=== PATIENT | male | born 1950 | race Caucasian/White ===

== ENCOUNTER 2017-06-25 06:34 | Day surgery (SDC) | payer BC ==
[2017-06-25] MEDS ORDERED: Ondansetron 4 MG/2 ML SDV IV ONE (06:35)
[2017-06-25] MEDS ORDERED: Lidocaine 1% with EPINEPHrine 1:100,000 20 ML MDV INJECT ONE ×2 (06:35→08:25)
[2017-06-25] MEDS ORDERED: fentaNYL 100 MCG/2 ML SDV IV ONE (06:35)
[2017-06-25] MEDS ORDERED: HYDROmorphone 1 MG/ML Syringe IV ONE (06:35)
[2017-06-25] MEDS ORDERED: Midazolam 1 MG/ML 2 ML SDV IV ONE (06:35)
[2017-06-25] MEDS ORDERED: Propofol 200 MG/20 ML SDV IV ONE (06:35)
[2017-06-25] MEDS ORDERED: Famotidine 20 MG/2 ML SDV IV ONE (06:35)
[2017-06-25] MEDS ORDERED: Midazolam 1 MG/ML 2 ML SDV ONE (07:26)
[2017-06-25] MEDS ORDERED: fentaNYL 100 MCG/2 ML SDV ONE (07:27)
[2017-06-25] MEDS ORDERED: Ondansetron 4 MG/2 ML SDV ONE (07:27)
[2017-06-25] MEDS ORDERED: Propofol 200 MG/20 ML SDV ONE (07:27)
[2017-06-25] MEDS ORDERED: Lidocaine 2% 20 ML MDV ONE (07:28)
[2017-06-25] MEDS ORDERED: Sodium Chloride 0.9% 10 ML Syringe FLUSH PRN (07:28)
[2017-06-25] MEDS ORDERED: Famotidine 20 MG/2 ML SDV ONE (07:28)
[2017-06-25] MEDS ORDERED: Lactated Ringers 1,000 ML IV SCH (07:30)
[2017-06-25] MEDS ORDERED: Lidocaine 1% with EPINEPHrine 1:100,000 20 ML MDV ONE ×3 (07:31→08:44)
--- NOTE | 2017-06-25 08:12 | PCM.PREANE ---
Preanesthetic Assessment - Procedure Proposed Procedure: Excision Lipoma right Axilla, Back of neck - Anesthesia/Transfusion/Family Hx Anesthesia History: Prior Anesthesia Without Reaction Type of Anesthesia Reaction: Unknown Family History of Anesthesia Reaction: No Transfusion History: No Prior Transfusion(s) - Physical Assessment NPO Status Date: 06/25/17 NPO Status Time: 06:10 O2 Sat by Pulse Oximetry: 96 Respiratory Rate: 18 Vital Signs: Last Vital Signs Temp 98.1 F 06/25/17 06:55 Pulse 77 06/25/17 06:55 Resp 18 06/25/17 06:55 BP 138/49 L 06/25/17 06:55 Pulse Ox 96 06/25/17 06:55 Height: 1.75 m Weight: 111.13 kg ASA Class: 3 Mental Status: Alert & Oriented x3 Airway Class: Mallampati = 3 Dentition: Reports: Normal Dentition Thyro-Mental Finger Breadths: 3 Mouth Opening Finger Breadths: 2 ROM/Head Extension: Full Lungs: Clear to Auscultation, Normal Respiratory Effort Cardiovascular: Regular Rate, Regular Rhythm - Allergies Allergies/Adverse Reactions: Allergies Allergy/AdvReac Type Severity Reaction Status Date / Time acetaminophen Allergy Cannot Verified 06/25/17 06:50 [From Tylenol-Codeine] Remember aspirin Allergy Cannot Verified 06/25/17 06:50 Remember codeine Allergy Cannot Verified 06/25/17 06:50 Remember codeine phosphate Allergy Cannot Verified 06/25/17 06:50 [From Tylenol-Codeine] Remember erythromycin base Allergy Cannot Verified 06/25/17 06:50 [Erythromycin Base] Remember glimepiride [From Amaryl] Allergy Cannot Verified 06/25/17 06:50 Remember glipizide [From Glucotrol] Allergy Cannot Verified 06/25/17 06:50 Remember Penicillins Allergy Cannot Verified 06/25/17 06:50 Remember pravastatin sodium Allergy Cannot Verified 06/25/17 06:50 [From Pravachol] Remember propoxyphene napsylate Allergy Cannot Verified 06/25/17 06:50 [From Darvocet-N] Remember sulfamethoxazole Allergy Cannot Verified 06/25/17 06:50 [From Septra] Remember trimethoprim [From Septra] Allergy Cannot Verified 06/25/17 06:50 Remember - Blood Blood Available: No Product(s) Available: None - Anesthesia Plan Pre-Op Medication Ordered: Antacids Med Last Dose Date: 06/25/17 Med Last Dose Time: 06:00 - Acknowledgements Anesthesia Type Planned: MAC Pt an Appropriate Candidate for the Planned Anesthesia: Yes Alternatives and Risks of Anesthesia Discussed w Pt/Guardian: Yes Pt/Guardian Understands and Agrees with Anesthesia Plan: Yes Additional Comments: R/B of Deep sedation vs general anesthesia is discussed with patient. Patient agreed and signed the consent. PreAnesthesia Questionnaire HEENT History: Reports: Impaired Vision Other HEENT History: wears glasses Cardiovascular History: Reports: High Cholesterol, Hypertension Respiratory History: Reports: None Gastrointestinal History: Reports: Other (See Below) Other Gastrointestinal History: ULCERATIVE colitis Genitourinary History: Reports: None, Renal Calculus Musculoskeletal History: Reports: Arthritis, Osteoarthritis Neurological History: Reports: None Psychiatric History: Reports: None Endocrine/Metabolic History: Reports: Diabetes, Type II Hematologic History: Reports: None Immunologic History: Reports: None Oncologic (Cancer) History: Reports: None Dermatologic History: Reports: None - Infectious Disease History Infectious Disease History: Reports: Chicken Pox, Measles, Mumps - Past Surgical History Head Surgeries/Procedures: Reports: None HEENT Surgical History: Reports: Cataract Surgery Cardiovascular Surgical History: Reports: None Respiratory Surgical History: Reports: None GI Surgical History: Reports: Colonoscopy, EGD Male Surgical History: Reports: Lithotripsy (ESWL) Neurological Surgical History: Reports: None Oncologic Surgical History: Reports: None Dermatological Surgical History: Reports: None - SUBSTANCE USE Smoking Status *Q: Never Smoker Second Hand Smoke Exposure: Yes Days Per Week of Alcohol Use: 0 Recreational Drug Use History: No - HOME MEDS Home Medications: Home Meds Furosemide [Furosemide] 20 mg PO ASDIRECTED 05/14/14 [History] Insulin Detemir [Levemir] 45 unit SUBCUT BEDTIME 05/14/14 [History] Fish Oil/DHA/EPA [Fish Oil 1,200 MG] 2 cap PO BID 07/28/16 [History] Insulin Lispro [HumaLOG] 26 units SQ BID 07/28/16 [History] Valsartan [Diovan] 80 mg PO DAILY 08/08/16 [History] Loratadine/Pseudoephedrine [Claritin-D 24 Hour Tablet] 0.5 tab PO DAILY PRN [History] Triamterene/Hydrochlorothiazid [Triamterene-HCTZ 37.5-25 MG] 1 each PO DAILY [History] atorvaSTATin [Lipitor] 5 mg PO BEDTIME 06/25/17 [History] - CURRENT (IN HOUSE) MEDS Current Meds: Current Medications Lactated Ringer's (Ringers, Lactated) 1,000 mls @ 50 mls/hr IV ASDIRECTED LARRY Last Admin: 06/25/17 07:30 Dose: 50 mls/hr Sodium Chloride (Saline Flush) 10 ml FLUSH ASDIRECTED PRN PRN Reason: Keep Vein Open Discontinued Medications Famotidine (Pepcid) Confirm Administered Dose 20 mg .ROUTE .STK-MED ONE Stop: 06/25/17 07:29 Fentanyl (Sublimaze) Confirm Administered Dose 200 mcg .ROUTE .STK-MED ONE Stop: 06/25/17 07:28 Lidocaine HCl (Xylocaine 2%) Confirm Administered Dose 20 ml .ROUTE .STK-MED ONE Stop: 06/25/17 07:29 Lidocaine/Epinephrine (Xylocaine 1% With Epinephrine 1:100,000) Confirm Administered Dose 20 ml .ROUTE .STK-MED ONE Stop: 06/25/17 07:32 Midazolam HCl (Versed 1 Mg/Ml) Confirm Administered Dose 2 mg .ROUTE .STK-MED ONE Stop: 06/25/17 07:27 Ondansetron HCl (Zofran) Confirm Administered Dose 4 mg .ROUTE .STK-MED ONE Stop: 06/25/17 07:28 Propofol (Diprivan 20 Ml) Confirm Administered Dose 600 mg .ROUTE .STK-MED ONE Stop: 06/25/17 07:28
[2017-06-25] MEDS ORDERED: Silver Nitrate Applicator Each ONE (08:27)
[2017-06-25] MEDS ORDERED: Silver Nitrate Applicator Each TOP ONE (08:28)
[2017-06-25] MEDS ORDERED: HYDROmorphone 1 MG/ML Syringe ONE (09:36)
--- NOTE | 2017-06-25 09:53 | PCM.POSTAN ---
POST ANESTHESIA ASSESSMENT - MENTAL STATUS Mental Status: Alert, Oriented - VITAL SIGNS Pulse Rate: 78 SaO2: 99 Resp Rate: 18 Blood Pressure: 122/78 Temperature: 98.1 F - RESPIRATORY Respiratory Status: Respiratory Rate WNL, Airway Patent, O2 Saturation Stable - CARDIOVASCULAR CV Status: Pulse Rate WNL, Blood Pressure Stable - GASTROINTESTINAL GI Status: No Symptoms - PAIN Pain Score: 1 - POST OP HYDRATION Hydration Status: Adequate & Stable - OBSERVATIONS Free Text/Narrative:: Comfortable after receiving 1 mg diludid IV. tolerated food and fluid well. BG 183 and patient is to follow his prescribed treatment as he is taking food and tolerated it well. Ready to be discharged home. Patient is pleased with anesthesia plan of care.
--- NOTE | 2017-06-25 10:02 | OR ---
DATE: 06/25/2017 ATTENDING SURGEON: Nathan Fritz MD GETTER WELDER SURGEON: Anton Cotto, PGY-III PREOPERATIVE DIAGNOSES: 1. Neck lipoma. 2. Right axillary lipoma. 3. Skin tags. POSTOPERATIVE DIAGNOSES: 1. Neck lipoma. 2. Right axillary lipoma. 3. Skin tags. SPECIMENS: 1. Right axillary lipoma. 2. Neck lipoma. ESTIMATED BLOOD LOSS: 20 mL. DRAINS: A 19-Bulgarian Sanjay drain in the right axilla. FINDINGS: Superficial neck lipoma. Lipoma of the axilla as expected. Minimal bleeding from right axilla. INDICATION FOR PROCEDURE: Tobi Francis is a 67-year-old male, who presents with lipoma of the right neck and lipoma of the right axilla. He has had these for many years. The right axilla has been giving him some issues with irritation. He has also starting having some symptoms from the neck lipoma on the right along his hairline. The risks, benefits, and alternatives were discussed with the patient by myself as well as Dr. Fritz prior to the operation, the patient wished to proceed with surgery at this time. DESCRIPTION OF PROCEDURE: The patient was brought to the operating room, placed supine on the operating room table. His arms were out. MAC anesthesia was placed. The patient was prepped and draped in standard sterile fashion. Procedural time-out was performed and all were in agreement. Local anesthetic was injected around the pre-planned incision site in the right axilla. An elliptical skin incision was made and carried down around the lipoma, removing in its entirety. There was a minimal bleeding that was controlled using electrocautery. A drain was placed. Multiple deep interrupted #1 PDS to close the space. The skin was closed with 4-0 Monocryl. Steri-Strips were placed and the 4x4s with dressings were placed. The skin tags were all removed following local anesthetic injection and electrocauterization was then used to remove the skin tags. We then tore down the sterile field and turned the patient to the left lateral decubitus position. The patient was re-prepped and draped in standard sterile fashion. Local anesthetic was injected. A linear incision was made overlying the lipoma and carried down into the subcutaneous tissue where the lipoma was encountered. This was encircled and removed in its entirety. This space was closed with 2-0 Vicryl and 4-0 Monocryl. Steri-Strips were placed over top. The patient was brought out of anesthesia without issue and transferred to PACU in stable condition. The patient will follow up in 3 days for possible drain removal at that time. Dr. Fritz was present and scrubbed for this operation. [facility] /[id number] MTDD
[2017-06-25 11:29] VITALS: BP 143/88
== END 2017-06-25 10:15 | disposition home or self-care (01) ==
LOC: DL.SDS 06:34
PROVIDERS: ATTEND Surgery
DX: D17.0 Benign lipomatous neoplasm of skin and subcutaneous tissue of head, face and neck (principal); D17.1 Benign lipomatous neoplasm of skin and subcutaneous tissue of trunk; L91.8 Other hypertrophic disorders of the skin; E11.9 Type 2 diabetes mellitus without complications; I10 Essential (primary) hypertension; E66.09 Other obesity due to excess calories; Z98.890 Other specified postprocedural states
CPT/HCPCS: 11200; 21552; 82962; J1170; J2250; J2405; J2704; J3010; J7120; S0028

== ENCOUNTER 2017-08-15 09:28 | Emergency (ER) | payer BC ==
[2017-08-15 09:45] VITALS: BP 138/75
[2017-08-15] MEDS ORDERED: Sodium Chloride 0.9% 10 ML Syringe FLUSH PRN (09:51)
--- NOTE | 2017-08-15 10:05 | EDM.PDOC ---
ED HPI GENERAL MEDICAL PROBLEM - General Chief Complaint: Respiratory Problem Stated Complaint: [id number] FLU Time Seen by Provider: 08/15/17 09:40 Source of Information: Reports: Patient, RN, RN Notes Reviewed History Limitations: Reports: No Limitations - History of Present Illness INITIAL COMMENTS - FREE TEXT/NARRATIVE: Pt presents to the ER with c/o diarrhea, generalized body aches, and not feeling well since Saturday with some nausea for which he took Maalox. He states the last time he had a bowel movement was yesterday, in which it was partial liquid/partially formed. He states he believes he had fever and chills on Saturday and Saturday, but he does not have a thermometer. He states he is diabetic and checked his sugars this morning, it was 135. He states he began having ringing in his ears yesterday, with his left being worse than the right. Pt denies vomiting, chest pain or sob. He admits to intermittant cough, but denies sore throat. Onset: Gradual Onset Date: 08/11/17 - Related Data Allergies Allergy/AdvReac Type Severity Reaction Status Date / Time acetaminophen Allergy Cannot Verified 06/28/17 10:05 [From Tylenol-Codeine] Remember aspirin Allergy Cannot Verified 06/28/17 10:05 Remember codeine Allergy Cannot Verified 06/28/17 10:05 Remember codeine phosphate Allergy Cannot Verified 06/28/17 10:05 [From Tylenol-Codeine] Remember erythromycin base Allergy Cannot Verified 06/28/17 10:05 [Erythromycin Base] Remember glimepiride [From Amaryl] Allergy Cannot Verified 06/28/17 10:05 Remember glipizide [From Glucotrol] Allergy Cannot Verified 06/28/17 10:05 Remember Penicillins Allergy Cannot Verified 06/28/17 10:05 Remember pravastatin sodium Allergy Cannot Verified 06/28/17 10:05 [From Pravachol] Remember propoxyphene napsylate Allergy Cannot Verified 06/28/17 10:05 [From Darvocet-N] Remember sulfamethoxazole Allergy Cannot Verified 06/28/17 10:05 [From Septra] Remember trimethoprim [From Septra] Allergy Cannot Verified 06/28/17 10:05 Remember Home Meds: Home Meds Furosemide 20 mg PO ASDIRECTED 05/14/14 [History] Insulin Detemir [Levemir] 75 unit SUBCUT BEDTIME 05/14/14 [History] Fish Oil/DHA/EPA [Fish Oil 1,200 MG] 2 cap PO BID 07/28/16 [History] Insulin Lispro [HumaLOG] 26 units SQ BID 07/28/16 [History] Valsartan [Diovan] 80 mg PO DAILY 08/08/16 [History] Loratadine/Pseudoephedrine [Claritin-D 24 Hour Tablet] 0.5 tab PO DAILY PRN [History] Triamterene/Hydrochlorothiazid [Triamterene-HCTZ 37.5-25 MG] 1 each PO DAILY [History] atorvaSTATin [Lipitor] 5 mg PO BEDTIME 06/25/17 [History] Past Medical History HEENT History: Reports: Impaired Vision Other HEENT History: wears glasses Cardiovascular History: Reports: High Cholesterol, Hypertension Respiratory History: Reports: None Gastrointestinal History: Reports: Other (See Below) Other Gastrointestinal History: ULCERATIVE colitis Genitourinary History: Reports: None, Renal Calculus Musculoskeletal History: Reports: Arthritis, Osteoarthritis Neurological History: Reports: None, Neuropathy, Diabetic Psychiatric History: Reports: None Endocrine/Metabolic History: Reports: Diabetes, Type II Hematologic History: Reports: None Immunologic History: Reports: None Oncologic (Cancer) History: Reports: None Dermatologic History: Reports: None - Infectious Disease History Infectious Disease History: Reports: Chicken Pox, Measles, Mumps - Past Surgical History Head Surgeries/Procedures: Reports: None HEENT Surgical History: Reports: Cataract Surgery Cardiovascular Surgical History: Reports: None Respiratory Surgical History: Reports: None GI Surgical History: Reports: Colonoscopy, EGD Male Surgical History: Reports: Lithotripsy (ESWL) Neurological Surgical History: Reports: None Oncologic Surgical History: Reports: None Dermatological Surgical History: Reports: None Social & Family History - Family History Family Medical History: Noncontributory - Tobacco Use Smoking Status *Q: Never Smoker Second Hand Smoke Exposure: Yes - Caffeine Use Caffeine Use: Reports: Soda - Alcohol Use Days Per Week of Alcohol Use: 0 - Recreational Drug Use Recreational Drug Use: No - Living Situation & Occupation Living situation: Reports: Single Occupation: Retired ED ROS GENERAL - Review of Systems Review Of Systems: ROS reveals no pertinent complaints other than HPI. ED EXAM, GENERAL - Physical Exam Exam: See Below Exam Limited By: No Limitations General Appearance: Alert, WD/WN, No Apparent Distress Eye Exam: Left Eye: Abnormal Pupil (irregular shape) Ears: Normal External Exam, Normal Canal, Hearing Grossly Normal Ear Exam: Bilateral Ear: Auricle Normal, Canal Normal, TM Dull, Other (effusions ) Nose: Normal Inspection Throat/Mouth: Normal Inspection, Normal Lips, Normal Teeth, Normal Gums, Normal Oropharynx, Normal Voice, No Airway Compromise Head: Atraumatic, Normocephalic Neck: Normal Inspection, Supple, Non-Tender, Full Range of Motion Respiratory/Chest: No Respiratory Distress, Lungs Clear, Normal Breath Sounds, No Accessory Muscle Use, Chest Non-Tender Cardiovascular: Normal Peripheral Pulses, Regular Rate, Rhythm, No Edema, No Gallop, No JVD, No Murmur, No Rub Peripheral Pulses: 2+: Radial (L), Radial (R) GI/Abdominal: Normal Bowel Sounds, Soft, Non-Tender (Male) Exam: Deferred Rectal (Males) Exam: Deferred Back Exam: Normal Inspection, Full Range of Motion Extremities: Normal Inspection, Normal Range of Motion, Non-Tender, No Pedal Edema, Normal Capillary Refill Neurological: Alert, Oriented, Normal Cognition, Normal Gait, No Motor/Sensory Deficits Psychiatric: Normal Affect, Normal Mood Skin Exam: Warm, Dry, Intact, Normal Color, No Rash Lymphatic: No Adenopathy Course - Vital Signs Last Recorded V/S: Last Vital Signs Temp 97 F 08/15/17 09:44 Pulse 84 08/15/17 09:44 Resp 16 08/15/17 09:44 BP 138/75 08/15/17 09:44 Pulse Ox 96 08/15/17 09:44 - Orders/Labs/Meds Orders: Active Orders 24 hr Category Date Time Status Peripheral IV Care [RC] . DIRECTED Care 08/15/17 09:52 Active CULTURE STREP A CONFIRMATION [] Stat Lab 08/15/17 09:55 Results STREP SCRN A RAPID W CULT CONF [] Stat Lab 08/15/17 09:55 Results Sodium Chloride 0.9% [Saline Flush] Med 08/15/17 09:51 Active 10 ml FLUSH ASDIRECTED PRN Peripheral IV Insertion Adult [OM.PC] Stat Oth 08/15/17 09:51 Ordered Medication Orders Sodium Chloride (Saline Flush) 10 ml FLUSH ASDIRECTED PRN PRN Reason: Keep Vein Open Last Admin: 08/15/17 10:09 Dose: 10 ml Labs: Laboratory Tests 08/15/17 08/15/17 Range/Units 10:02 10:02 WBC 6.6 (5.0-10.0) 10^3/uL RBC 4.78 (4.6-6.2) 10^6/uL Hgb 14.4 (14.0-18.0) g/dL Hct 42.4 (40.0-54.0) % MCV 88.7 (80-100) fL MCH 30.1 (27.0-34.0) pg MCHC 34.0 (33.0-35.0) g/dL Plt Count 176 (150-450) 10^3/uL Neut % (Auto) 52.5 (42.2-75.2) % Lymph % (Auto) 29.8 (20.5-50.1) % [place] % (Auto) 14.0 H (2-8) % Eos % (Auto) 3.4 H (1.0-3.0) % Baso % (Auto) 0.3 (0.0-1.0) % Sodium 137 (135-145) mmol/L Potassium 3.5 L (3.6-5.0) mmol/L Chloride 98 L (101-111) mmol/L Carbon Dioxide 27.0 (21.0-31.0) mmol/L Anion Gap 15.5 BUN 21 H (7-18) mg/dL Creatinine 1.1 (0.6-1.3) mg/dL Est Cr Clr Drug Dosing 62.18 mL/min Estimated GFR (MDRD) > 60 BUN/Creatinine Ratio 19.09 Glucose 128 H (74-105) mg/dL Calcium 9.3 (8.4-10.2) mg/dl Total Bilirubin 0.8 (0.2-1.0) mg/dL AST 26 (10-42) IU/L ALT 34 (10-60) IU/L Alkaline Phosphatase 53 (42-121) IU/L Total Protein 7.3 (6.7-8.2) g/dl Albumin 3.9 (3.2-5.5) g/dl Globulin 3.4 Albumin/Globulin Ratio 1.15 Group A Strep Screen: NEGATIVE Meds: Medications Generic Name Dose Route Start Last Admin Trade Name [place] PRN Reason Stop Dose Admin Sodium Chloride 10 ml 08/15/17 09:51 08/15/17 10:09 Saline Flush FLUSH 10 ml ASDIRECTED PRN Administration Keep Vein Open Departure - Departure Time of Disposition: 10:41 Disposition: Home, Self-Care 01 Condition: Good Clinical Impression: Acute middle ear effusion Qualifiers: Laterality: bilateral Qualified Code(s): H65.193 - Other acute nonsuppurative otitis media, bilateral - Discharge Information Instructions: Otitis Media With Effusion Forms: ED Department Discharge Additional Instructions: Use Flonase (fluticasone) 1 spray to each nostril once daily. Use the left hand to spray the right nare, and the right hand to spray the left nare. Use 1 full tablet of the loratidine/pseudoephedrine (Claritin D) once daily for 1 week. Drink plenty of water. - My Orders Last 24 Hours: My Active Orders 08/15/17 09:51 Sodium Chloride 0.9% [Saline Flush] 10 ml FLUSH ASDIRECTED PRN Peripheral IV Insertion Adult [OM.PC] Stat 08/15/17 09:52 Peripheral IV Care [RC] . DIRECTED 08/15/17 09:55 CULTURE STREP A CONFIRMATION [RM] Stat STREP SCRN A RAPID W CULT CONF [] Stat - Assessment/Plan Last 24 Hours: My Active Orders 08/15/17 09:51 Sodium Chloride 0.9% [Saline Flush] 10 ml FLUSH ASDIRECTED PRN Peripheral IV Insertion Adult [OM.PC] Stat 08/15/17 09:52 Peripheral IV Care [RC] . DIRECTED 08/15/17 09:55 CULTURE STREP A CONFIRMATION [RM] Stat STREP SCRN A RAPID W CULT CONF [] Stat
[2017-08-15 10:28] LABS: CHLORIDE,CL 98 mmol/L (101-111); SODIUM,NA 137 mmol/L (135-145)
== END 2017-08-15 10:52 | disposition home or self-care (01) ==
LOC: DL.ED 09:28
DX: H65.193 Other acute nonsuppurative otitis media, bilateral (principal); E78.00 Pure hypercholesterolemia, unspecified; I10 Essential (primary) hypertension; E11.40 Type 2 diabetes mellitus with diabetic neuropathy, unspecified; Z88.8 Allergy status to other drugs, medicaments and biological substances; Z88.5 Allergy status to narcotic agent; Z88.1 Allergy status to other antibiotic agents; Z88.0 Allergy status to penicillin; Z79.4 Long term (current) use of insulin
CPT/HCPCS: 36415; 80053; 85025; 87081; 87430; 99282; J7050

== ENCOUNTER 2017-08-19 08:29 | Emergency (ER) | payer BC ==
--- NOTE | 2017-08-19 08:54 | EDM.PDOC ---
ED HPI GENERAL MEDICAL PROBLEM - General Chief Complaint: Lower Extremity Injury/Pain Stated Complaint: [id number] FEET PAIN LEFT FOOT WORSE Time Seen by Provider: 08/19/17 08:40 Source of Information: Reports: Patient History Limitations: Reports: No Limitations - History of Present Illness INITIAL COMMENTS - FREE TEXT/NARRATIVE: This 67 yo male patient reports to the ED with left foot pain, but reports both feet have pain. The patient reports his pain started about 1 month ago, but got worse over the past couple of days. The patient reports that he did see Dr. Doyle (Podiatry) last week, but nothing was done for his symptoms. The patient requested that he be transferred to another hospital "to have something done." The patient was advised that we could not transfer him unless there was a medical reason for a transfer. The patient reports he does have some hydrocodone for his arthritis, but has not taken that medication. The patient also reports a history of diabetes and peripheral neuropathy. Onset: Gradual (nerve pain started over 1 month ago, but got worse over the past 48 hours.) Duration: Constant, Getting Worse Location: Reports: Lower Extremity, Left Quality: Reports: Ache, Sharp Severity: Severe Improves with: Reports: None Worsens with: Reports: None Associated Symptoms: Reports: No Other Symptoms Left Feet Pain Score (Numeric/FACES): 5 - Related Data Allergies Allergy/AdvReac Type Severity Reaction Status Date / Time acetaminophen Allergy Cannot Verified 08/19/17 09:20 [From Tylenol-Codeine] Remember aspirin Allergy Cannot Verified 08/19/17 09:20 Remember codeine Allergy Cannot Verified 08/19/17 09:20 Remember codeine phosphate Allergy Cannot Verified 08/19/17 09:20 [From Tylenol-Codeine] Remember erythromycin base Allergy Cannot Verified 08/19/17 09:20 [Erythromycin Base] Remember glimepiride [From Amaryl] Allergy Cannot Verified 08/19/17 09:20 Remember glipizide [From Glucotrol] Allergy Cannot Verified 08/19/17 09:20 Remember Penicillins Allergy Cannot Verified 08/19/17 09:20 Remember pravastatin sodium Allergy Cannot Verified 08/19/17 09:20 [From Pravachol] Remember propoxyphene napsylate Allergy Cannot Verified 08/19/17 09:20 [From Darvocet-N] Remember sulfamethoxazole Allergy Cannot Verified 08/19/17 09:20 [From ] Remember trimethoprim [From ] Allergy Cannot Verified 08/19/17 09:20 Remember Home Meds: Home Meds Furosemide 20 mg PO ASDIRECTED 05/14/14 [History] Insulin Detemir [Levemir] 75 unit SUBCUT BEDTIME 05/14/14 [History] Fish Oil/DHA/EPA [Fish Oil 1,200 MG] 2 cap PO BID 07/28/16 [History] Insulin Lispro [HumaLOG] 45 units SQ BID 07/28/16 [History] Valsartan [Diovan] 80 mg PO DAILY 08/08/16 [History] Loratadine/Pseudoephedrine [Claritin-D 24 Hour Tablet] 0.5 tab PO DAILY PRN [History] Triamterene/Hydrochlorothiazid [Triamterene-HCTZ 37.5-25 MG] 1 each PO DAILY [History] atorvaSTATin [Lipitor] 5 mg PO BEDTIME 06/25/17 [History] Past Medical History HEENT History: Reports: Impaired Vision Other HEENT History: wears glasses Cardiovascular History: Reports: High Cholesterol, Hypertension Respiratory History: Reports: None Gastrointestinal History: Reports: Other (See Below) Other Gastrointestinal History: ULCERATIVE colitis Genitourinary History: Reports: Renal Calculus Musculoskeletal History: Reports: Arthritis, Osteoarthritis Neurological History: Reports: Neuropathy, Diabetic Psychiatric History: Reports: None Endocrine/Metabolic History: Reports: Diabetes, Type II Hematologic History: Reports: None Immunologic History: Reports: None Oncologic (Cancer) History: Reports: None Dermatologic History: Reports: None - Infectious Disease History Infectious Disease History: Reports: Chicken Pox, Measles, Mumps - Past Surgical History Head Surgeries/Procedures: Reports: None HEENT Surgical History: Reports: Cataract Surgery Cardiovascular Surgical History: Reports: None Respiratory Surgical History: Reports: None GI Surgical History: Reports: Colonoscopy, EGD Male Surgical History: Reports: Lithotripsy (ESWL) Neurological Surgical History: Reports: None Oncologic Surgical History: Reports: None Dermatological Surgical History: Reports: None Social & Family History - Family History Family Medical History: Noncontributory - Tobacco Use Smoking Status *Q: Never Smoker Second Hand Smoke Exposure: Yes - Caffeine Use Caffeine Use: Reports: Coffee - Alcohol Use Days Per Week of Alcohol Use: 0 - Recreational Drug Use Recreational Drug Use: No - Living Situation & Occupation Living situation: Reports: Single Occupation: Retired Review of Systems - Review of Systems Review Of Systems: ROS reveals no pertinent complaints other than HPI. ED EXAM, GENERAL - Physical Exam Exam: See Below Exam Limited By: No Limitations General Appearance: Alert, WD/WN, Moderate Distress Eye Exam: Bilateral Eye: EOMI, Normal Inspection, PERRL Ears: Normal External Exam, Normal Canal, Hearing Grossly Normal, Normal TMs Nose: Normal Inspection, Normal Mucosa, No Blood Throat/Mouth: Normal Inspection, Normal Lips, Normal Teeth, Normal Gums, Normal Oropharynx, Normal Voice, No Airway Compromise Head: Atraumatic, Normocephalic Neck: Normal Inspection, Supple, Non-Tender, Full Range of Motion Respiratory/Chest: No Respiratory Distress, Lungs Clear, Normal Breath Sounds, No Accessory Muscle Use, Chest Non-Tender Cardiovascular: Normal Peripheral Pulses, Regular Rate, Rhythm, No Edema, No Gallop, No JVD, No Murmur, No Rub GI/Abdominal: Normal Bowel Sounds, Soft, Non-Tender, No Organomegaly, No Distention, No Abnormal Bruit, No Mass (Male) Exam: Deferred Rectal (Males) Exam: Deferred Back Exam: Normal Inspection, Full Range of Motion, NT Extremities: Other (left foot pain) Neurological: Alert, Oriented, CN II-XII Intact, Normal Cognition, Normal Gait, Normal Reflexes Psychiatric: Normal Affect, Normal Mood Skin Exam: Warm, Dry, Intact, Normal Color, No Rash Lymphatic: No Adenopathy Course - Vital Signs Last Recorded V/S: Last Vital Signs Temp 36.6 C 08/19/17 08:49 Pulse 84 08/19/17 08:49 Resp 18 08/19/17 08:49 BP 120/66 08/19/17 08:49 Pulse Ox 95 08/19/17 08:49 Departure - Departure Time of Disposition: 09:29 Disposition: Home, Self-Care 01 Condition: Fair Clinical Impression: Peripheral neuropathic pain - Discharge Information Instructions: Peripheral Neuropathy, Diabetic Neuropathy Forms: ED Department Discharge Care Plan Goals: The patient was advised of the examination and x-ray results during the visit. The patient was encouraged to follow-up with his primary care facility or distiller for consideration for starting a medication called Gabapentin ( designed for peripheral neuropathy). If the patient has any additional symptoms or concerns, the patient should visit his primary care facility or return to the emergency department.
[2017-08-19 09:31] VITALS: BP 120/63
== END 2017-08-19 09:40 | disposition home or self-care (01) ==
LOC: DL.ED 08:29
DX: M79.2 Neuralgia and neuritis, unspecified (principal); E78.00 Pure hypercholesterolemia, unspecified; I10 Essential (primary) hypertension; E11.40 Type 2 diabetes mellitus with diabetic neuropathy, unspecified; Z79.899 Other long term (current) drug therapy; Z79.4 Long term (current) use of insulin; Z88.2 Allergy status to sulfonamides; Z88.5 Allergy status to narcotic agent; Z88.8 Allergy status to other drugs, medicaments and biological substances
CPT/HCPCS: 73630-LT; 99284

== ENCOUNTER 2017-10-19 17:31 | Emergency (ER) | payer BC ==
[2017-10-19] MEDS ORDERED: Cephalexin 500 MG Cap PO ONE (18:13)
--- NOTE | 2017-10-19 18:14 | EDM.PDOC ---
ED HPI GENERAL MEDICAL PROBLEM - General Chief Complaint: Respiratory Problem Stated Complaint: COUGH AND CONGESTION [id number] Time Seen by Provider: 10/19/17 17:50 Source of Information: Reports: Patient, RN, RN Notes Reviewed - History of Present Illness INITIAL COMMENTS - FREE TEXT/NARRATIVE: Pt presents to the ER with c/o sneezing, productive cough, sore throat, congestion, fever, and chills for the past 2 weeks. He states he was seen in the ER at [facility] in [place] about 2 weeks ago with gastritis, N/V/D. He states he was there for several hours getting fluids. He states the upper respiratory symptoms started a day or two after the gastritis. Onset: Gradual Location: Reports: Face Generalized Pain Score (Numeric/FACES): 2 - Related Data Allergies Allergy/AdvReac Type Severity Reaction Status Date / Time acetaminophen Allergy Cannot Verified 10/19/17 17:40 [From Tylenol-Codeine] Remember aspirin Allergy Cannot Verified 10/19/17 17:40 Remember codeine Allergy Cannot Verified 10/19/17 17:40 Remember codeine phosphate Allergy Cannot Verified 10/19/17 17:40 [From Tylenol-Codeine] Remember erythromycin base Allergy Cannot Verified 10/19/17 17:40 [Erythromycin Base] Remember glimepiride [From Amaryl] Allergy Cannot Verified 10/19/17 17:40 Remember glipizide [From Glucotrol] Allergy Cannot Verified 10/19/17 17:40 Remember Penicillins Allergy Cannot Verified 10/19/17 17:40 Remember pravastatin sodium Allergy Cannot Verified 10/19/17 17:40 [From Pravachol] Remember propoxyphene napsylate Allergy Cannot Verified 10/19/17 17:40 [From Darvocet-N] Remember sulfamethoxazole Allergy Cannot Verified 10/19/17 17:40 [From Septra] Remember trimethoprim [From Septra] Allergy Cannot Verified 10/19/17 17:40 Remember Home Meds: Home Meds Furosemide 20 mg PO ASDIRECTED 05/14/14 [History] Insulin Detemir [Levemir] 74 unit SUBCUT BEDTIME 05/14/14 [History] Fish Oil/DHA/EPA [Fish Oil 1,200 MG] 2 cap PO BID 07/28/16 [History] Insulin Lispro [HumaLOG] 45 units SQ BID 07/28/16 [History] Valsartan [Diovan] 80 mg PO DAILY 08/08/16 [History] Loratadine/Pseudoephedrine [Claritin-D 24 Hour Tablet] 0.5 tab PO DAILY PRN [History] Triamterene/Hydrochlorothiazid [Triamterene-HCTZ 37.5-25 MG] 1 each PO DAILY [History] atorvaSTATin [Lipitor] 5 mg PO BEDTIME 06/25/17 [History] Acetaminophen [Tylenol Extra Strength] 250 mg PO Q6H 10/19/17 [History] Famotidine [Pepcid] 10 mg PO BID 10/19/17 [History] Hydrocodone/Acetaminophen [Hydrocodon-Acetaminoph 2.5-325] 1 tab PO 1700 PRN [History] Past Medical History HEENT History: Reports: Impaired Vision Other HEENT History: wears glasses Cardiovascular History: Reports: High Cholesterol, Hypertension Respiratory History: Reports: None Gastrointestinal History: Reports: Other (See Below) Other Gastrointestinal History: ULCERATIVE colitis Genitourinary History: Reports: Renal Calculus Musculoskeletal History: Reports: Arthritis, Osteoarthritis Neurological History: Reports: Neuropathy, Diabetic Psychiatric History: Reports: None Endocrine/Metabolic History: Reports: Diabetes, Type II Hematologic History: Reports: None Immunologic History: Reports: None Oncologic (Cancer) History: Reports: None Dermatologic History: Reports: None - Infectious Disease History Infectious Disease History: Reports: Chicken Pox, Measles, Mumps - Past Surgical History Head Surgeries/Procedures: Reports: None HEENT Surgical History: Reports: Cataract Surgery Cardiovascular Surgical History: Reports: None Respiratory Surgical History: Reports: None GI Surgical History: Reports: Colonoscopy, EGD Male Surgical History: Reports: Lithotripsy (ESWL) Neurological Surgical History: Reports: None Oncologic Surgical History: Reports: None Dermatological Surgical History: Reports: None Social & Family History - Family History Family Medical History: Noncontributory - Tobacco Use Smoking Status *Q: Never Smoker Second Hand Smoke Exposure: Yes - Caffeine Use Caffeine Use: Reports: None - Alcohol Use Days Per Week of Alcohol Use: 0 - Recreational Drug Use Recreational Drug Use: No - Living Situation & Occupation Living situation: Reports: Single Occupation: Retired ED ROS GENERAL - Review of Systems Review Of Systems: ROS reveals no pertinent complaints other than HPI. ED EXAM, GENERAL - Physical Exam Exam: See Below Exam Limited By: No Limitations General Appearance: Alert, WD/WN, No Apparent Distress Eye Exam: Bilateral Eye: EOMI, Normal Inspection Ears: Normal External Exam, Hearing Grossly Normal Ear Exam: Bilateral Ear: TM Dull Nose: Normal Inspection Throat/Mouth: Normal Inspection, Normal Voice, No Airway Compromise, Other ( oropharnyx erythematous) Head: Atraumatic, Normocephalic Neck: Normal Inspection, Supple, Non-Tender, Full Range of Motion Respiratory/Chest: No Respiratory Distress, Lungs Clear, Normal Breath Sounds, No Accessory Muscle Use, Chest Non-Tender Cardiovascular: Normal Peripheral Pulses, Regular Rate, Rhythm, No Edema, No Gallop, No JVD, No Murmur, No Rub Peripheral Pulses: 2+: Radial (L), Radial (R) GI/Abdominal: Normal Bowel Sounds, Soft, Non-Tender, No Organomegaly, No Distention, No Abnormal Bruit, No Mass (Male) Exam: Deferred Rectal (Males) Exam: Deferred Back Exam: Normal Inspection, Full Range of Motion, NT Extremities: Normal Inspection, Normal Range of Motion, Non-Tender, Normal Capillary Refill, No Pedal Edema Neurological: Alert, Oriented, CN II-XII Intact, Normal Cognition, Normal Gait, Normal Reflexes, No Motor/Sensory Deficits Psychiatric: Normal Affect, Normal Mood Skin Exam: Warm, Dry, Intact, Normal Color, No Rash Lymphatic: Adenopathy (Bilateral anterior cervical) Course - Vital Signs Last Recorded V/S: Last Vital Signs Temp 96.7 F 10/19/17 17:36 Pulse 97 10/19/17 17:36 Resp 16 10/19/17 17:36 BP 175/70 H 10/19/17 17:36 Pulse Ox 95 10/19/17 17:36 - Orders/Labs/Meds Meds: Medications Discontinued Medications Generic Name Dose Route Start Last Admin Trade Name Freq PRN Reason Stop Dose Admin Cephalexin 500 mg 10/19/17 18:13 Keflex PO 10/19/17 18:14 ONETIME ONE Departure - Departure Time of Disposition: 18:10 Disposition: Home, Self-Care 01 Clinical Impression: Upper respiratory infection Qualifiers: URI type: unspecified URI Qualified Code(s): J06.9 - Acute upper respiratory infection, unspecified - Discharge Information Instructions: Upper Respiratory Infection, Adult, [id number] Forms: ED Department Discharge Additional Instructions: RX: Keflex Use the Flonase that you have at home. 1 spray to each nostril daily for 7-10 days. Drink plenty of water. Follow up with your primary care facility if no improvement.
[2017-10-19 18:20] VITALS: BP 121/74
== END 2017-10-19 18:22 | disposition home or self-care (01) ==
LOC: DL.ED 17:31
DX: J06.9 Acute upper respiratory infection, unspecified (principal); I10 Essential (primary) hypertension; E78.00 Pure hypercholesterolemia, unspecified; E11.40 Type 2 diabetes mellitus with diabetic neuropathy, unspecified; Z88.5 Allergy status to narcotic agent; Z88.1 Allergy status to other antibiotic agents; Z88.8 Allergy status to other drugs, medicaments and biological substances; Z88.0 Allergy status to penicillin; Z88.2 Allergy status to sulfonamides; Z88.6 Allergy status to analgesic agent; Z79.899 Other long term (current) drug therapy; Z79.4 Long term (current) use of insulin
CPT/HCPCS: 99283; A9270

== ENCOUNTER 2017-11-12 21:49 | Emergency (ER) | payer BC ==
[2017-11-12 21:59] VITALS: BP 147/62
--- NOTE | 2017-11-12 22:41 | EDM.PDOC ---
ED HPI GENERAL MEDICAL PROBLEM - General Chief Complaint: ENT Problem Time Seen by Provider: 11/12/17 22:39 Source of Information: Reports: Patient History Limitations: Reports: No Limitations - History of Present Illness INITIAL COMMENTS - FREE TEXT/NARRATIVE: c/o cough, congestion, achy feeling, scratchy throat with fever and chills. Similar symptoms 2 weeks ago, resolved with abx, Was at [email or web address] game and sx resumed. Generalized Pain Score (Numeric/FACES): 4 - Related Data Allergies Allergy/AdvReac Type Severity Reaction Status Date / Time acetaminophen Allergy Cannot Verified 11/12/17 21:59 [From Tylenol-Codeine] Remember aspirin Allergy Cannot Verified 11/12/17 21:59 Remember codeine Allergy Cannot Verified 11/12/17 21:59 Remember codeine phosphate Allergy Cannot Verified 11/12/17 21:59 [From Tylenol-Codeine] Remember erythromycin base Allergy Cannot Verified 11/12/17 21:59 [Erythromycin Base] Remember glimepiride [From Amaryl] Allergy Cannot Verified 11/12/17 21:59 Remember glipizide [From Glucotrol] Allergy Cannot Verified 11/12/17 21:59 Remember Penicillins Allergy Cannot Verified 11/12/17 21:59 Remember pravastatin sodium Allergy Cannot Verified 11/12/17 21:59 [From Pravachol] Remember propoxyphene napsylate Allergy Cannot Verified 11/12/17 21:59 [From Darvocet-N] Remember sulfamethoxazole Allergy Cannot Verified 11/12/17 21:59 [From Septra] Remember trimethoprim [From Septra] Allergy Cannot Verified 11/12/17 21:59 Remember Home Meds: Home Meds Furosemide 20 mg PO ASDIRECTED 05/14/14 [History] Insulin Detemir [Levemir] 74 unit SUBCUT BEDTIME 05/14/14 [History] Fish Oil/DHA/EPA [Fish Oil 1,200 MG] 2 cap PO BID 07/28/16 [History] Insulin Lispro [HumaLOG] 45 units SQ BID 07/28/16 [History] Valsartan [Diovan] 80 mg PO DAILY 08/08/16 [History] Loratadine/Pseudoephedrine [Claritin-D 24 Hour Tablet] 0.5 tab PO DAILY PRN [History] Triamterene/Hydrochlorothiazid [Triamterene-HCTZ 37.5-25 MG] 1 each PO DAILY [History] atorvaSTATin [Lipitor] 5 mg PO BEDTIME 06/25/17 [History] Acetaminophen [Tylenol Extra Strength] 250 mg PO Q6H 10/19/17 [History] Famotidine [Pepcid] 10 mg PO BID 10/19/17 [History] Hydrocodone/Acetaminophen [Hydrocodon-Acetaminoph 2.5-325] 1 tab PO 1700 PRN [History] Acetaminophen with Codeine [Tylenol with Codeine #3 Tablet] 1 each PO BID PRN [History] Past Medical History HEENT History: Reports: Impaired Vision Other HEENT History: wears glasses Cardiovascular History: Reports: High Cholesterol, Hypertension Respiratory History: Reports: None Gastrointestinal History: Reports: Other (See Below) Other Gastrointestinal History: ULCERATIVE colitis Genitourinary History: Reports: Renal Calculus Musculoskeletal History: Reports: Arthritis, Osteoarthritis Neurological History: Reports: Neuropathy, Diabetic Psychiatric History: Reports: None Endocrine/Metabolic History: Reports: Diabetes, Type II Hematologic History: Reports: None Immunologic History: Reports: None Oncologic (Cancer) History: Reports: None Dermatologic History: Reports: None - Infectious Disease History Infectious Disease History: Reports: Chicken Pox, Measles, Mumps - Past Surgical History Head Surgeries/Procedures: Reports: None HEENT Surgical History: Reports: Cataract Surgery Cardiovascular Surgical History: Reports: None Respiratory Surgical History: Reports: None GI Surgical History: Reports: Colonoscopy, EGD Male Surgical History: Reports: Lithotripsy (ESWL) Neurological Surgical History: Reports: None Oncologic Surgical History: Reports: None Dermatological Surgical History: Reports: None Social & Family History - Family History Family Medical History: Noncontributory - Tobacco Use Smoking Status *Q: Never Smoker Second Hand Smoke Exposure: No - Caffeine Use Caffeine Use: Reports: None - Alcohol Use Days Per Week of Alcohol Use: 0 - Recreational Drug Use Recreational Drug Use: No - Living Situation & Occupation Living situation: Reports: Single Occupation: Retired ED ROS ENT - Review of Systems Review Of Systems: See Below Constitutional: Reports: Fever, Chills HEENT: Reports: Sinus Problem, Throat Pain Respiratory: Reports: Cough Cardiovascular: Denies: Chest Pain Endocrine: Reports: No Symptoms GI/Abdominal: Reports: No Symptoms Musculoskeletal: Reports: No Symptoms Skin: Reports: No Symptoms Neurological: Reports: No Symptoms ED EXAM, ENT - Physical Exam Exam: See Below Exam Limited By: No Limitations General Appearance: Alert, No Apparent Distress Eye Exam: Bilateral Eye: EOMI, PERRL Ears: Normal External Exam, Normal TMs. No: TM Erythema Nose: Normal Inspection Mouth/Throat: Pharyngeal Erythema Head: Atraumatic, Normocephalic Neck: Normal Inspection, Full Range of Motion Respiratory/Chest: No Respiratory Distress, Lungs Clear, Normal Breath Sounds Cardiovascular: Normal Peripheral Pulses, Regular Rate, Rhythm GI/Abdominal: Normal Bowel Sounds, Soft, Non-Tender Extremities: Normal Inspection Neurological: Alert, Oriented Psychiatric: Normal Affect Skin: Warm, Dry, Intact, Normal Color Course - Vital Signs Last Recorded V/S: Last Vital Signs Temp 97.9 F 11/12/17 21:55 Pulse 86 11/12/17 21:55 Resp 18 11/12/17 21:55 BP 147/62 H 11/12/17 21:55 Pulse Ox 97 11/12/17 21:55 Departure - Departure Time of Disposition: 22:41 Disposition: Home, Self-Care 01 Condition: Good Clinical Impression: Upper respiratory infection Qualifiers: URI type: unspecified URI Qualified Code(s): J06.9 - Acute upper respiratory infection, unspecified - Discharge Information Instructions: Upper Respiratory Infection, Adult Referrals: PCP,Unobtain [Primary Care Provider] - Forms: ED Department Discharge Additional Instructions: increase fluids ibuprofen for fever keflex 500mg 3 times daily for 10 days follow up in clinic if not improving
== END 2017-11-12 22:49 | disposition home or self-care (01) ==
LOC: DL.ED 21:49
DX: J06.9 Acute upper respiratory infection, unspecified (principal); I10 Essential (primary) hypertension; E78.00 Pure hypercholesterolemia, unspecified; E11.40 Type 2 diabetes mellitus with diabetic neuropathy, unspecified; Z79.4 Long term (current) use of insulin; Z79.899 Other long term (current) drug therapy; Z88.1 Allergy status to other antibiotic agents; Z88.2 Allergy status to sulfonamides; Z88.8 Allergy status to other drugs, medicaments and biological substances; Z88.5 Allergy status to narcotic agent; Z88.6 Allergy status to analgesic agent; Z88.0 Allergy status to penicillin
CPT/HCPCS: 99282

== ENCOUNTER 2018-06-24 22:39 | Emergency (ER) | payer BC ==
[2018-06-24 22:55] VITALS: BP 141/76
--- NOTE | 2018-06-25 01:13 | EDM.PDOC ---
ED HPI GENERAL MEDICAL PROBLEM - General Chief Complaint: ENT Problem Stated Complaint: SORE THROAT [id number] Time Seen by Provider: 06/25/18 01:08 Source of Information: Reports: Patient History Limitations: Reports: No Limitations - History of Present Illness INITIAL COMMENTS - FREE TEXT/NARRATIVE: patient community department today with complaints of an itchy scratchy and sore throat. This been going on for the past couple of days. He has no difficulty swallowing or congestion. No sinus congestion or ear pain. No shortness of breath or difficulty breathing. No fever no chills. Right Throat Pain Score (Numeric/FACES): 6 - Related Data Allergies Allergy/AdvReac Type Severity Reaction Status Date / Time acetaminophen Allergy Cannot Verified 11/12/17 21:59 [From Tylenol-Codeine] Remember aspirin Allergy Cannot Verified 11/12/17 21:59 Remember codeine Allergy Cannot Verified 11/12/17 21:59 Remember codeine phosphate Allergy Cannot Verified 11/12/17 21:59 [From Tylenol-Codeine] Remember erythromycin base Allergy Cannot Verified 11/12/17 21:59 [Erythromycin Base] Remember glimepiride [From Amaryl] Allergy Cannot Verified 11/12/17 21:59 Remember glipizide [From Glucotrol] Allergy Cannot Verified 11/12/17 21:59 Remember Penicillins Allergy Cannot Verified 11/12/17 21:59 Remember pravastatin sodium Allergy Cannot Verified 11/12/17 21:59 [From Pravachol] Remember propoxyphene napsylate Allergy Cannot Verified 11/12/17 21:59 [From Darvocet-N] Remember sulfamethoxazole Allergy Cannot Verified 11/12/17 21:59 [From Septra] Remember trimethoprim [From Septra] Allergy Cannot Verified 11/12/17 21:59 Remember Home Meds: Home Meds Furosemide 20 mg PO ASDIRECTED 05/14/14 [History] Insulin Detemir [Levemir] 74 unit SUBCUT BEDTIME 05/14/14 [History] Fish Oil/DHA/EPA [Fish Oil 1,200 MG] 2 cap PO BID 07/28/16 [History] Insulin Lispro [HumaLOG] 45 units SQ BID 07/28/16 [History] Valsartan [Diovan] 80 mg PO DAILY 08/08/16 [History] Loratadine/Pseudoephedrine [Claritin-D 24 Hour Tablet] 0.5 tab PO DAILY PRN [History] Triamterene/Hydrochlorothiazid [Triamterene-HCTZ 37.5-25 MG] 1 each PO DAILY [History] atorvaSTATin [Lipitor] 5 mg PO BEDTIME 06/25/17 [History] Acetaminophen [Tylenol Extra Strength] 250 mg PO Q6H 10/19/17 [History] Famotidine [Pepcid] 10 mg PO BID 10/19/17 [History] Hydrocodone/Acetaminophen [Hydrocodon-Acetaminoph 2.5-325] 1 tab PO 1700 PRN [History] Acetaminophen with Codeine [Tylenol with Codeine #3 Tablet] 1 each PO BID PRN [History] Past Medical History HEENT History: Reports: Impaired Vision Other HEENT History: wears glasses Cardiovascular History: Reports: High Cholesterol, Hypertension Respiratory History: Reports: None Gastrointestinal History: Reports: Other (See Below) Other Gastrointestinal History: ULCERATIVE colitis Genitourinary History: Reports: Renal Calculus Musculoskeletal History: Reports: Arthritis, Osteoarthritis Neurological History: Reports: Neuropathy, Diabetic Psychiatric History: Reports: None Endocrine/Metabolic History: Reports: Diabetes, Type II Hematologic History: Reports: None Immunologic History: Reports: None Oncologic (Cancer) History: Reports: None Dermatologic History: Reports: None - Infectious Disease History Infectious Disease History: Reports: Chicken Pox, Measles, Mumps - Past Surgical History Head Surgeries/Procedures: Reports: None HEENT Surgical History: Reports: Cataract Surgery Cardiovascular Surgical History: Reports: None Respiratory Surgical History: Reports: None GI Surgical History: Reports: Colonoscopy, EGD Male Surgical History: Reports: Lithotripsy (ESWL) Neurological Surgical History: Reports: None Oncologic Surgical History: Reports: None Dermatological Surgical History: Reports: None Social & Family History - Family History Family Medical History: Noncontributory - Tobacco Use Smoking Status *Q: Never Smoker Second Hand Smoke Exposure: No - Caffeine Use Caffeine Use: Reports: None - Recreational Drug Use Recreational Drug Use: No - Living Situation & Occupation Living situation: Reports: Single Occupation: Retired ED ROS ENT - Review of Systems Review Of Systems: ROS reveals no pertinent complaints other than HPI. ED EXAM, ENT - Physical Exam Exam: See Below Exam Limited By: No Limitations General Appearance: Alert, WD/WN, No Apparent Distress Eye Exam: Bilateral Eye: Normal Inspection Ears: Normal External Exam, Normal Canal, Normal TMs Nose: Normal Inspection, Normal Mucousa, No Blood Mouth/Throat: Normal Inspection, Normal Gums, Normal Lips, Normal Oropharynx, Normal Teeth Head: Atraumatic, Normocephalic Neck: Normal Inspection, Supple, Non-Tender, Full Range of Motion Respiratory/Chest: No Respiratory Distress, Lungs Clear, Normal Breath Sounds, No Accessory Muscle Use, Chest Non-Tender Cardiovascular: Normal Peripheral Pulses, Regular Rate, Rhythm, No Edema GI/Abdominal: Normal Bowel Sounds, Soft Back: Normal Inspection Extremities: Normal Inspection Neurological: Alert, Oriented, No Motor/Sensory Deficits Psychiatric: Normal Affect Skin: Warm, Dry, Intact Lymphatic: No Adenopathy Course - Vital Signs Last Recorded V/S: Last Vital Signs Temp 36.9 C 06/24/18 22:52 Pulse 83 06/24/18 22:52 Resp 18 06/24/18 22:52 BP 141/76 H 06/24/18 22:52 Pulse Ox 95 06/24/18 22:52 - Orders/Labs/Meds Orders: Active Orders 24 hr Category Date Time Status CULTURE STREP A CONFIRMATION [] Stat Lab 06/24/18 22:55 Results STREP SCRN A RAPID W CULT CONF [RM] Stat Lab 06/24/18 22:55 Results Labs: Microbiology 06/24/18 22:55 Throat Group A Streptococcus Rapid Screen - Final NEGATIVE STREP A SCREEN - Re-Assessments/Exams Free Text/Narrative Re-Assessment/Exam: 06/25/18 the patient has a negative strep screen. His exam is really unremarkable and completely normal. On mammography does not have sent a viral process that is going on as he does not have a fever and I do not find any signs of infection. Symptomatically management as is paramount at this time. The patient is rather upset and does not understand why he is not getting an antibiotic. Every time that he comes to emergency department for a sore throat he gets an antibiotic despite positive or negative strep screen. The patient that at this time I do not find any sites of bacterial infection and we do not treat viruses with antibiotics. Despite what other providers have done for him in the past at this time he does not have any indication for antibiotics and symptomatic management is paramount at this time. He has not attempted any symptomatic management prior to arrival just immediately came to the ER with a sore throat as he always gets antibiotics and that the only thing that makes them better he reports. I did explain to him that the other times that he was seen he also had a negative strep and antibiotics or just time I recommend the reason that he improved as viral illnesses do not improve with antibiotics Departure - Departure Time of Disposition: 01:24 Disposition: Home, Self-Care 01 Clinical Impression: Sore throat (viral) - Discharge Information Instructions: Sore Throat, [id number] Forms: ED Department Discharge Additional Instructions: Tylenol as needed for pain. OTC Sucrets for sore throat. Warm salt water gargles. Return to the ED if new or worsening symptoms. Recheck primary care provider in the next 4-6 days if not improving sooner worse. - My Orders Last 24 Hours: My Active Orders 06/24/18 22:55 CULTURE STREP A CONFIRMATION [RM] Stat STREP SCRN A RAPID W CULT CONF [] Stat - Assessment/Plan Last 24 Hours: My Active Orders 06/24/18 22:55 CULTURE STREP A CONFIRMATION [RM] Stat STREP SCRN A RAPID W CULT CONF [RM] Stat Assessment:: Viral sore throat Plan: Tylenol as needed for pain. OTC Sucrets for sore throat. Warm salt water gargles. Return to the ED if new or worsening symptoms. Recheck primary care provider in the next 4-6 days if not improving sooner worse.
== END 2018-06-25 01:31 | disposition home or self-care (01) ==
LOC: DL.ED 22:39
DX: J02.9 Acute pharyngitis, unspecified (principal); I10 Essential (primary) hypertension; E11.40 Type 2 diabetes mellitus with diabetic neuropathy, unspecified; Z88.5 Allergy status to narcotic agent; Z88.8 Allergy status to other drugs, medicaments and biological substances; Z88.0 Allergy status to penicillin; Z88.2 Allergy status to sulfonamides; Z79.899 Other long term (current) drug therapy
CPT/HCPCS: 87081; 87430; 99283

== ENCOUNTER 2019-12-05 18:19 | Emergency (ER) | payer BC ==
[2019-12-05 18:59] VITALS: BP 159/79; PULSE 79
[2019-12-05] MEDS ORDERED: Albuterol/Ipratropium 3.0-0.5 MG/3 ML Neb Soln NEB ONE (20:50)
--- NOTE | 2019-12-05 20:55 | EDM.PDOC ---
ED HPI GENERAL MEDICAL PROBLEM - General Chief Complaint: Respiratory Problem Stated Complaint: COUGH, WEEZING, Time Seen by Provider: 12/05/19 20:50 Source of Information: Reports: Patient History Limitations: Reports: No Limitations - History of Present Illness INITIAL COMMENTS - FREE TEXT/NARRATIVE: patient comes emergency department today with complaints of wheezing. Since about the end of August the beginning of September he has had one bout of pneumonia in 2 bouts of bronchitis. He has had multiple rounds of antibiotics. Most recently the beginning of October. He continues to have some wheezing at rest as well as with physical exertion. He has a dry hacking nonproductive cough. No fever no chills. No weakness shortness of breath. No chest pain. He was on a round of steroids about a week ago orally that helped his wheezing but the minute he stopped it came back. He has not tried to see his primary care provider. 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 Head Pain Score (Numeric/FACES): 4 - Related Data Allergies Allergy/AdvReac Type Severity Reaction Status Date / Time acetaminophen Allergy Cannot Verified 12/05/19 19:01 [From Tylenol-Codeine] Remember aspirin Allergy Cannot Verified 12/05/19 19:01 Remember codeine Allergy Cannot Verified 12/05/19 19:01 Remember codeine phosphate Allergy Cannot Verified 12/05/19 19:01 [From Tylenol-Codeine] Remember erythromycin base Allergy Cannot Verified 12/05/19 19:01 [Erythromycin Base] Remember glimepiride [From Amaryl] Allergy Cannot Verified 12/05/19 19:01 Remember glipizide [From Glucotrol] Allergy Cannot Verified 12/05/19 19:01 Remember Penicillins Allergy Cannot Verified 12/05/19 19:01 Remember pravastatin sodium Allergy Cannot Verified 12/05/19 19:01 [From Pravachol] Remember propoxyphene napsylate Allergy Cannot Verified 12/05/19 19:01 [From Darvocet-N] Remember sulfamethoxazole Allergy Cannot Verified 11/12/17 21:59 [From Septra] Remember trimethoprim [From Septra] Allergy Cannot Verified 11/12/17 21:59 Remember Home Meds: Home Meds Furosemide 20 mg PO ASDIRECTED 05/14/14 [History] Insulin Detemir [Levemir] 75 unit SUBCUT BEDTIME 05/14/14 [History] Fish Oil/DHA/EPA [Fish Oil 1,200 MG] 2 cap PO BID 07/28/16 [History] Insulin Lispro [HumaLOG] 50 units SQ BID 07/28/16 [History] Valsartan [Diovan] 80 mg PO DAILY 08/08/16 [History] Loratadine/Pseudoephedrine [Claritin-D 24 Hour Tablet] 0.5 tab PO DAILY PRN [History] Triamterene/Hydrochlorothiazid [Triamterene-HCTZ 37.5-25 MG] 1 each PO DAILY [History] atorvaSTATin [Lipitor] 5 mg PO BEDTIME 06/25/17 [History] Acetaminophen [Tylenol Extra Strength] 250 mg PO Q6H 10/19/17 [History] Famotidine [Pepcid] 10 mg PO BID 10/19/17 [History] Hydrocodone/Acetaminophen [Hydrocodon-Acetaminoph 2.5-325] 1 tab PO 1700 PRN [History] Acetaminophen with Codeine [Tylenol with Codeine #3 Tablet] 1 each PO BID PRN [History] Past Medical History HEENT History: Reports: Impaired Vision Other HEENT History: wears glasses Cardiovascular History: Reports: High Cholesterol, Hypertension Respiratory History: Reports: Bronchitis, Recurrent Gastrointestinal History: Reports: Other (See Below) Other Gastrointestinal History: ULCERATIVE colitis Genitourinary History: Reports: Renal Calculus Musculoskeletal History: Reports: Arthritis, Osteoarthritis, Other (See Below) Other Musculoskeletal History: finger surgery R/T diabetes. Neurological History: Reports: Neuropathy, Diabetic Psychiatric History: Reports: None Endocrine/Metabolic History: Reports: Diabetes, Type II Hematologic History: Reports: None Immunologic History: Reports: None Oncologic (Cancer) History: Reports: None Dermatologic History: Reports: Other (See Below) Other Dermatologic History: sores on scalp R/T diabetes - Infectious Disease History Infectious Disease History: Reports: Chicken Pox, Measles, Mumps - Past Surgical History Head Surgeries/Procedures: Reports: None HEENT Surgical History: Reports: Cataract Surgery Cardiovascular Surgical History: Reports: None Respiratory Surgical History: Reports: None GI Surgical History: Reports: Colonoscopy, EGD, Other (See Below) Other GI Surgeries/Procedures: hemmorhoid surger 1973 Male Surgical History: Reports: Lithotripsy (ESWL) Endocrine Surgical History: Reports: None Neurological Surgical History: Reports: None Oncologic Surgical History: Reports: None Dermatological Surgical History: Reports: None Social & Family History - Family History Family Medical History: Noncontributory - Tobacco Use Smoking Status *Q: Never Smoker Second Hand Smoke Exposure: Yes - Caffeine Use Caffeine Use: Reports: Tea - Recreational Drug Use Recreational Drug Use: No - Living Situation & Occupation Living situation: Reports: Single Occupation: Retired ED ROS GENERAL - Review of Systems Review Of Systems: Comprehensive ROS is negative, except as noted in HPI. ED EXAM, GENERAL - Physical Exam Exam: See Below Exam Limited By: No Limitations General Appearance: Alert, WD/WN, No Apparent Distress Ears: Normal External Exam, Normal TMs Nose: Normal Inspection, Normal Mucosa Throat/Mouth: Normal Inspection, Normal Lips, Normal Oropharynx Head: Atraumatic, Normocephalic Neck: Normal Inspection, Supple, Non-Tender Respiratory/Chest: No Respiratory Distress, No Accessory Muscle Use, Chest Non- Tender, Wheezing (faint inspiratory and expiratory wheezingno increased work of breathing.). No: Crackles, Rales, Rhonchi Cardiovascular: Normal Peripheral Pulses, Regular Rate, Rhythm GI/Abdominal: Normal Bowel Sounds, Soft Back Exam: Normal Inspection Extremities: Normal Inspection, Normal Range of Motion, Normal Capillary Refill Neurological: Alert, Oriented, Normal Cognition, No Motor/Sensory Deficits Psychiatric: Normal Affect, Normal Mood Skin Exam: Warm, Dry, Intact, Normal Color Course - Vital Signs Last Recorded V/S: Last Vital Signs Temp 37.1 C 12/05/19 18:52 Pulse 79 12/05/19 18:52 Resp 18 12/05/19 18:52 BP 159/79 H 12/05/19 18:52 Pulse Ox 95 12/05/19 18:52 - Orders/Labs/Meds Orders: Active Orders 24 hr Category Date Time Status RT Aerosol Therapy [RC] ASDIRECTED Care 12/05/19 20:50 Active Meds: Medications Discontinued Medications Generic Name Dose Route Start Last Admin Trade Name Freq PRN Reason Stop Dose Admin Albuterol/Ipratropium 3 ml 12/05/19 20:50 12/05/19 21:01 Duoneb 3.0-0.5 Mg/3 Ml NEB 12/05/19 20:51 3 ml ONETIME ONE Administration Albuterol/Ipratropium Confirm 12/05/19 21:01 Duoneb 3.0-0.5 Mg/3 Ml Administered 12/05/19 21:02 Dose 3 ml .ROUTE .STK-MED ONE - Radiology Interpretation Free Text/Narrative:: chest x-ray per radiology shows no acute findings. - Re-Assessments/Exams Free Text/Narrative Re-Assessment/Exam: 12/05/19 21:31 she was given a DuoNeb nebulizer with resolution of his wheezing. He feels much better. This is related to sequelae of a postviral cough syndrome. As the oral glucocorticoids improved at but it returned. Do not find any evidence of pneumonia or need for antibiotics at this time. We will stay away from the oral glucocorticoids as it raises his blood sugar. Will start him on fluticasone salmeterol twice a day and have him follow-up with primary care provider. Anything worse he is to recheck. He is understanding of this and his questions are answered. Departure - Departure Time of Disposition: 20:53 Disposition: Home, Self-Care 01 Clinical Impression: Post-viral cough syndrome, Wheezing - Discharge Information Instructions: Cough, Adult, [id number], How to Use a Metered Dose Inhaler Forms: ED Department Discharge Additional Instructions: Start FLuticasone/Salmeterol 1 puff twice daily for the next month. RX given to the patient. Recheck with PCP in 2 weeks Use the albuterol inhaler as needed as previously. Increase fluid intake. Return to the ED if new or worsening symptoms. Sepsis Event Note - Evaluation Sepsis Screening Result: No Definite Risk - Focused Exam Vital Signs: Vital Signs Temp Pulse Resp BP Pulse Ox 12/05/19 18:52 37.1 C 79 18 159/79 H 95 Date Exam was Performed: 12/05/19 Time Exam was Performed: 21:28 - My Orders Last 24 Hours: My Active Orders 12/05/19 20:50 RT Aerosol Therapy [RC] ASDIRECTED - Assessment/Plan Last 24 Hours: My Active Orders 12/05/19 20:50 RT Aerosol Therapy [RC] ASDIRECTED Assessment:: Post viral syndrome cough. Wheezing. Plan: Start FLuticasone/Salmeterol 1 puff twice daily for the next month. RX given to the patient. Recheck with PCP in 2 weeks Use the albuterol inhaler as needed as previously. Increase fluid intake. Return to the ED if new or worsening symptoms.
[2019-12-05] MEDS ORDERED: Albuterol/Ipratropium 3.0-0.5 MG/3 ML Neb Soln ONE (21:01)
== END 2019-12-05 21:24 | disposition home or self-care (01) ==
LOC: DL.ED 18:19
DX: R06.2 Wheezing (principal); R05 Cough; E78.00 Pure hypercholesterolemia, unspecified; I10 Essential (primary) hypertension; E11.40 Type 2 diabetes mellitus with diabetic neuropathy, unspecified; Z88.6 Allergy status to analgesic agent; Z88.5 Allergy status to narcotic agent; Z88.1 Allergy status to other antibiotic agents; Z88.8 Allergy status to other drugs, medicaments and biological substances; Z79.4 Long term (current) use of insulin; Z79.899 Other long term (current) drug therapy
CPT/HCPCS: 71046; 99285-25; J7620-GY

== ENCOUNTER 2020-08-27 14:38 | Emergency (ER) | payer BC ==
[2020-08-27 14:47] VITALS: BP 138/79; PULSE 106
--- NOTE | 2020-08-27 14:58 | EDM.PDOC ---
ED HPI GENERAL MEDICAL PROBLEM - General Stated Complaint: SINUS', EYE HURTS Time Seen by Provider: 08/27/20 14:52 Source of Information: Reports: Patient History Limitations: Reports: No Limitations - History of Present Illness INITIAL COMMENTS - FREE TEXT/NARRATIVE: Patient is here for sinus pain and pressure. He was seen in the clinic yesterday for cough, but the pressure hadn't started yet. He was given robitussin with codeine and noted the cough is better. The pressure is mostly under and around his right eye. No fevers or chills. No ear pain or fullness. Onset: Today Duration: Getting Worse Location: Reports: Face Quality: Reports: Pressure, Throbbing Severity: Moderate Improves with: Reports: None Worsens with: Reports: None Right Face/Facial Pain Score (Numeric/FACES): 5 - Related Data Allergies Allergy/AdvReac Type Severity Reaction Status Date / Time acetaminophen Allergy Cannot Verified 08/27/20 14:47 [From Tylenol-Codeine] Remember aspirin Allergy Cannot Verified 08/27/20 14:47 Remember codeine Allergy Cannot Verified 08/27/20 14:47 Remember codeine phosphate Allergy Cannot Verified 08/27/20 14:47 [From Tylenol-Codeine] Remember erythromycin base Allergy Cannot Verified 08/27/20 14:47 [Erythromycin Base] Remember glimepiride [From Amaryl] Allergy Cannot Verified 08/27/20 14:47 Remember glipizide [From Glucotrol] Allergy Cannot Verified 08/27/20 14:47 Remember Penicillins Allergy Cannot Verified 08/27/20 14:47 Remember pravastatin sodium Allergy Cannot Verified 08/27/20 14:47 [From Pravachol] Remember propoxyphene napsylate Allergy Cannot Verified 08/27/20 14:47 [From Darvocet-N] Remember sulfamethoxazole Allergy Cannot Verified 08/27/20 14:47 [From Septra] Remember trimethoprim [From Septra] Allergy Cannot Verified 08/27/20 14:47 Remember Home Meds: Home Meds Furosemide 20 mg PO ASDIRECTED 05/14/14 [History] Insulin Detemir [Levemir] 75 unit SUBCUT BEDTIME 05/14/14 [History] Fish Oil/DHA/EPA [Fish Oil 1,200 MG] 2 cap PO BID 07/28/16 [History] Insulin Lispro [HumaLOG] 50 units SQ BID 07/28/16 [History] Valsartan [Diovan] 80 mg PO DAILY 08/08/16 [History] Loratadine/Pseudoephedrine [Claritin-D 24 Hour Tablet] 0.5 tab PO DAILY PRN 06/25/17 [History] Triamterene/Hydrochlorothiazid [Triamterene-HCTZ 37.5-25 MG] 1 each PO DAILY 06/25/17 [History] atorvaSTATin [Lipitor] 5 mg PO BEDTIME 06/25/17 [History] Acetaminophen [Tylenol Extra Strength] 250 mg PO Q6H 10/19/17 [History] Famotidine [Pepcid] 10 mg PO BID 10/19/17 [History] Hydrocodone/Acetaminophen [Hydrocodon-Acetaminoph 2.5-325] 1 tab PO 1700 PRN 10/19/17 [History] Acetaminophen with Codeine [Tylenol with Codeine #3 Tablet] 1 each PO BID PRN 11/12/17 [History] Past Medical History HEENT History: Reports: Impaired Vision Other HEENT History: wears glasses Cardiovascular History: Reports: High Cholesterol, Hypertension Respiratory History: Reports: Bronchitis, Recurrent Gastrointestinal History: Reports: Other (See Below) Other Gastrointestinal History: ULCERATIVE colitis Genitourinary History: Reports: Renal Calculus Musculoskeletal History: Reports: Arthritis, Osteoarthritis, Other (See Below) Other Musculoskeletal History: finger surgery R/T diabetes. Neurological History: Reports: Neuropathy, Diabetic Psychiatric History: Reports: None Endocrine/Metabolic History: Reports: Diabetes, Type II Hematologic History: Reports: None Immunologic History: Reports: None Oncologic (Cancer) History: Reports: None Dermatologic History: Reports: Other (See Below) Other Dermatologic History: sores on scalp R/T diabetes - Infectious Disease History Infectious Disease History: Reports: Chicken Pox, Measles, Mumps - Past Surgical History Head Surgeries/Procedures: Reports: None HEENT Surgical History: Reports: Cataract Surgery Cardiovascular Surgical History: Reports: None Respiratory Surgical History: Reports: None GI Surgical History: Reports: Colonoscopy, EGD, Other (See Below) Other GI Surgeries/Procedures: hemmorhoid surger 1973 Male Surgical History: Reports: Lithotripsy (ESWL) Endocrine Surgical History: Reports: None Neurological Surgical History: Reports: None Oncologic Surgical History: Reports: None Dermatological Surgical History: Reports: None Social & Family History - Family History Family Medical History: Noncontributory - Tobacco Use Tobacco Use Status *Q: Never Tobacco User - Caffeine Use Caffeine Use: Reports: Tea - Recreational Drug Use Recreational Drug Use: No - Living Situation & Occupation Living situation: Reports: Single Occupation: Retired ED ROS GENERAL - Review of Systems Review Of Systems: Comprehensive ROS is negative, except as noted in HPI. ED EXAM, GENERAL - Physical Exam Exam: See Below Exam Limited By: No Limitations General Appearance: Alert, WD/WN, No Apparent Distress Eye Exam: Bilateral Eye: Normal Inspection Ears: Normal External Exam, Normal Canal, Hearing Grossly Normal, Normal TMs Nose: Normal Inspection, Nasal Tenderness (over right maxillary sinus) Head: Atraumatic, Normocephalic Neck: Normal Inspection, Supple, Non-Tender Respiratory/Chest: No Respiratory Distress, Lungs Clear, Normal Breath Sounds, No Accessory Muscle Use Cardiovascular: Normal Peripheral Pulses, Regular Rate, Rhythm, No Murmur GI/Abdominal: Soft, Non-Tender Neurological: Alert, Oriented, Normal Cognition, Normal Gait Psychiatric: Normal Affect, Normal Mood Skin Exam: Warm, Dry, Intact, Normal Color, No Rash Lymphatic: No Adenopathy Course - Vital Signs Last Recorded V/S: Last Vital Signs Temp 97.1 F 08/27/20 14:46 Pulse 106 H 08/27/20 14:46 Resp 18 08/27/20 14:46 BP 138/79 08/27/20 14:46 Pulse Ox 96 08/27/20 14:46 Departure - Departure Time of Disposition: 14:56 Disposition: Home, Self-Care 01 Condition: Good Clinical Impression: Acute sinusitis - Discharge Information *PRESCRIPTION DRUG MONITORING PROGRAM REVIEWED*: Not Applicable *COPY OF PRESCRIPTION DRUG MONITORING REPORT IN PATIENT SALLY: Not Applicable Instructions: Sinusitis, Adult, [id number] Additional Instructions: Doxycycline BID for 14 days. Avoid sun exposure due to increased sun sensitivity Continue robitussin for cough and OTC medications for symptom relief Follow up with PCP in 3-5 days. Sepsis Event Note (ED) - Evaluation Sepsis Screening Result: No Definite Risk - Focused Exam Vital Signs: Vital Signs Temp Pulse Resp BP Pulse Ox 08/27/20 14:46 97.1 F 106 H 18 138/79 96
== END 2020-08-27 15:00 | disposition home or self-care (01) ==
LOC: DL.ED 14:38
DX: J01.90 Acute sinusitis, unspecified (principal); I10 Essential (primary) hypertension; E11.40 Type 2 diabetes mellitus with diabetic neuropathy, unspecified; Z88.6 Allergy status to analgesic agent; Z88.5 Allergy status to narcotic agent; Z88.1 Allergy status to other antibiotic agents; Z88.8 Allergy status to other drugs, medicaments and biological substances; Z88.0 Allergy status to penicillin; Z88.2 Allergy status to sulfonamides; Z79.4 Long term (current) use of insulin; Z79.899 Other long term (current) drug therapy; E78.00 Pure hypercholesterolemia, unspecified
CPT/HCPCS: 99283

== ENCOUNTER 2020-11-14 22:04 | Emergency (ER) | payer BC ==
[2020-11-14 22:55] VITALS: BP 146/83; PULSE 96
--- NOTE | 2020-11-14 23:43 | EDM.PDOC ---
ED HPI GENERAL MEDICAL PROBLEM - General Chief Complaint: Diabetic Complaint Stated Complaint: HIGH BLOOD SUGAR 297 Time Seen by Provider: 11/14/20 23:25 Source of Information: Reports: Patient History Limitations: Reports: No Limitations - History of Present Illness INITIAL COMMENTS - FREE TEXT/NARRATIVE: This 70 yo male patient reports to the ED due to elevated blood sugar levels. The patient reports he was a little low when he left school and ate 1/2 candy bar. The patient then took his insulin before supper. The patient reports he had a chicken strip basket, a cheeseburger and a saturday. After that, the patient noticed that his blood sugar was 360, so he came into the ED. Onset: Today Duration: Minutes: Location: Reports: Generalized Quality: Reports: Other Severity: Moderate Improves with: Reports: None Worsens with: Reports: None Context: Reports: Other Associated Symptoms: Reports: No Other Symptoms - Related Data Allergies Allergy/AdvReac Type Severity Reaction Status Date / Time acetaminophen Allergy Cannot Verified 08/27/20 14:47 [From Tylenol-Codeine] Remember aspirin Allergy Cannot Verified 11/14/20 22:55 Remember codeine Allergy Cannot Verified 11/14/20 22:55 Remember codeine phosphate Allergy Cannot Verified 11/14/20 22:55 [From Tylenol-Codeine] Remember erythromycin base Allergy Cannot Verified 11/14/20 22:55 [Erythromycin Base] Remember glimepiride [From Amaryl] Allergy Cannot Verified 11/14/20 22:55 Remember glipizide [From Glucotrol] Allergy Cannot Verified 11/14/20 22:55 Remember Penicillins Allergy Cannot Verified 11/14/20 22:55 Remember pravastatin sodium Allergy Cannot Verified 11/14/20 22:55 [From Pravachol] Remember propoxyphene napsylate Allergy Cannot Verified 11/14/20 22:55 [From Darvocet-N] Remember sulfamethoxazole Allergy Cannot Verified 08/27/20 14:47 [From Septra] Remember trimethoprim [From Septra] Allergy Cannot Verified 08/27/20 14:47 Remember Home Meds: Home Meds Insulin Detemir [Levemir] 75 unit SUBCUT BEDTIME 05/14/14 [History] Insulin Lispro [HumaLOG] 8 units SQ BID 07/28/16 [History] Valsartan [Diovan] 80 mg PO DAILY 08/08/16 [History] Triamterene/Hydrochlorothiazid [Triamterene-HCTZ 37.5-25 MG] 1 each PO DAILY 06/25/17 [History] atorvaSTATin [Lipitor] 33.3 mg PO BEDTIME 06/25/17 [History] Hydrocodone/Acetaminophen [Hydrocodon-Acetaminoph 2.5-325] 1 tab PO 1700 PRN 10/19/17 [History] Acetaminophen with Codeine [Tylenol with Codeine #3 Tablet] 1 each PO .HS DAILY PRN 11/12/17 [History] Omeprazole Magnesium [Prilosec] 40 mg PO DAILY 11/14/20 [History] Past Medical History HEENT History: Reports: Impaired Vision Other HEENT History: wears glasses Cardiovascular History: Reports: High Cholesterol, Hypertension Respiratory History: Reports: Bronchitis, Recurrent Gastrointestinal History: Reports: Other (See Below) Other Gastrointestinal History: ULCERATIVE colitis Genitourinary History: Reports: Renal Calculus Musculoskeletal History: Reports: Arthritis, Osteoarthritis, Other (See Below) Other Musculoskeletal History: finger surgery R/T diabetes. Neurological History: Reports: Neuropathy, Diabetic Psychiatric History: Reports: None Endocrine/Metabolic History: Reports: Diabetes, Type II Hematologic History: Reports: None Immunologic History: Reports: None Oncologic (Cancer) History: Reports: None Dermatologic History: Reports: Other (See Below) Other Dermatologic History: sores on scalp R/T diabetes - Infectious Disease History Infectious Disease History: Reports: Chicken Pox, Measles, Mumps - Past Surgical History Head Surgeries/Procedures: Reports: None HEENT Surgical History: Reports: Cataract Surgery Cardiovascular Surgical History: Reports: None Respiratory Surgical History: Reports: None GI Surgical History: Reports: Colonoscopy, EGD, Other (See Below) Other GI Surgeries/Procedures: hemmorhoid surger 1972 Male Surgical History: Reports: Lithotripsy (ESWL) Endocrine Surgical History: Reports: None Neurological Surgical History: Reports: None Oncologic Surgical History: Reports: None Dermatological Surgical History: Reports: None Social & Family History - Family History Family Medical History: No Pertinent Family History - Caffeine Use Caffeine Use: Reports: Tea - Living Situation & Occupation Living situation: Reports: Single Occupation: Retired ED ROS GENERAL - Review of Systems Review Of Systems: Comprehensive ROS is negative, except as noted in HPI. ED EXAM GENERAL NO PERIP PULSE - Physical Exam Exam: See Below Exam Limited By: No Limitations General Appearance: Alert, WD/WN, Mild Distress Eye Exam: Bilateral Eye: EOMI, Normal Inspection, PERRL Ears: Normal External Exam, Normal Canal, Hearing Grossly Normal, Normal TMs Nose: Normal Inspection, Normal Mucosa, No Blood Throat/Mouth: Normal Inspection, Normal Lips, Normal Teeth, Normal Gums, Normal Oropharynx, Normal Voice, No Airway Compromise Head: Atraumatic, Normocephalic Neck: Normal Inspection Respiratory/Chest: No Respiratory Distress, Lungs Clear, Normal Breath Sounds, No Accessory Muscle Use, Chest Non-Tender Cardiovascular: Normal Peripheral Pulses, Regular Rate, Rhythm, No Edema, No Gallop, No JVD, No Murmur, No Rub GI/Abdominal: Normal Bowel Sounds, Soft, Non-Tender, No Organomegaly, No Distention, No Abnormal Bruit, No Mass (Male) Exam: Deferred Rectal (Males) Exam: Deferred Back Exam: Normal Inspection, Full Range of Motion, NT Extremities: Normal Inspection, Normal Range of Motion, Non-Tender, Normal Capillary Refill, No Pedal Edema Psychiatric: Normal Affect, Normal Mood Skin Exam: Warm, Dry, Intact, Normal Color, No Rash Lymphatic: No Adenopathy Course - Vital Signs Last Recorded V/S: Last Vital Signs Temp 36.3 C 11/14/20 22:48 Pulse 96 11/14/20 22:48 Resp 18 11/14/20 22:48 BP 146/83 H 11/14/20 22:48 Pulse Ox 97 11/14/20 22:48 - Orders/Labs/Meds Labs: Laboratory Tests 11/14/20 11/14/20 Range/Units 23:06 23:38 POC Glucose 268 H 271 H (83-110) mg/dl Departure - Departure Time of Disposition: 23:36 Disposition: Home, Self-Care 01 Condition: Fair Clinical Impression: Hyperglycemia - Discharge Information *PRESCRIPTION DRUG MONITORING PROGRAM REVIEWED*: Not Applicable *COPY OF PRESCRIPTION DRUG MONITORING REPORT IN PATIENT SALLY: Not Applicable Instructions: Hyperglycemia, [id number] Forms: ED Department Discharge Care Plan Goals: The patient was advised of the examination and lab results during the visit. The patient was encouraged to continue to take his insulin as directed. If the pat ient has any additional symptoms or concerns, the patient should either return to the emergency department or visit his primary care facility. Sepsis Event Note (ED) - Evaluation Sepsis Screening Result: No Definite Risk - Focused Exam Vital Signs: Vital Signs Temp Pulse Resp BP Pulse Ox 11/14/20 22:48 36.3 C 96 18 146/83 H 97
== END 2020-11-14 23:50 | disposition home or self-care (01) ==
LOC: DL.ED 22:04
DX: E11.65 Type 2 diabetes mellitus with hyperglycemia (principal); I10 Essential (primary) hypertension; E78.00 Pure hypercholesterolemia, unspecified; E11.40 Type 2 diabetes mellitus with diabetic neuropathy, unspecified; Z88.5 Allergy status to narcotic agent; Z88.8 Allergy status to other drugs, medicaments and biological substances; Z88.1 Allergy status to other antibiotic agents; Z79.4 Long term (current) use of insulin; Z79.899 Other long term (current) drug therapy
CPT/HCPCS: 82962; 99282; 99284

== ENCOUNTER 2020-12-04 20:34 | Emergency (ER) | payer BC ==
[2020-12-04 21:35] LABS: ANION GAP 12.1 mEq/L (7-13); CHLORIDE,CL 102 mmol/L (98-107); SODIUM,NA 139 mmol/L (136-145)
--- NOTE | 2020-12-04 21:36 | CR ---
PROCEDURE INFORMATION: Exam: XR Chest, 2 Views Exam date and time: 12/04/2020 9:22 PM Age: 70 years old Clinical indication: Other: Chest pain; Additional info: Shortness of breath; Chest tightness TECHNIQUE: Imaging protocol: XR of the chest Views: 2 views. COMPARISON: CR Chest 2V 12/05/2019 7:55 PM FINDINGS: Lungs: Unremarkable. No consolidation. Pleural spaces: Unremarkable. No pleural effusion. No pneumothorax. Heart/Mediastinum: Unremarkable. No cardiomegaly. Bones/joints: Age appropriate. IMPRESSION: 1. Normal chest. 2. No significant interval change when compared to the CR Chest 2V 12/05/2019 7:55 PM.
[2020-12-04] MEDS ORDERED: Albuterol/Ipratropium 3.0-0.5 MG/3 ML Neb Soln NEB ONE (21:46)
--- NOTE | 2020-12-04 21:57 | EDM.PDOC ---
ED HPI GENERAL MEDICAL PROBLEM - General Chief Complaint: Respiratory Problem Stated Complaint: CHEST IS TIGHT, COUGHING FLEM Time Seen by Provider: 12/04/20 21:10 Source of Information: Reports: Patient, RN, RN Notes Reviewed History Limitations: Reports: No Limitations - History of Present Illness INITIAL COMMENTS - FREE TEXT/NARRATIVE: Patient presents to the ED via personal vehicle with complaints of chest tightness and shortness of breath. The patient reports these symptoms began about one week ago, but have progressively worsened in severity. The patient states a history of chronic bronchitis for which he takes Advair daily; the patient reports taking this medication multiple times in a day instead of utilizing his albuterol inhaler PRN. Additionally, he attest to minor sinus congestion and cough. He states he has been taking Robitussin with codeine for cough which has provided moderate alleviation of this symptom. He denies recent illness, fever, shaking chills, chest pain, palpitations, dyspepsia, nausea, or vomiting. The patient denies a history of COVID infection and received his first dose of COVID vaccination three days ago, 12/01/20. He denies tobacco, alcohol, or recreational drug use. Anterior Chest Pain Score (Numeric/FACES): 5 - Related Data Allergies Allergy/AdvReac Type Severity Reaction Status Date / Time acetaminophen Allergy Cannot Verified 12/04/20 21:10 [From Tylenol-Codeine] Remember aspirin Allergy Cannot Verified 12/04/20 21:10 Remember codeine Allergy Cannot Verified 12/04/20 21:10 Remember codeine phosphate Allergy Cannot Verified 12/04/20 21:10 [From Tylenol-Codeine] Remember erythromycin base Allergy Cannot Verified 12/04/20 21:10 [Erythromycin Base] Remember glimepiride [From Amaryl] Allergy Cannot Verified 12/04/20 21:10 Remember glipizide [From Glucotrol] Allergy Cannot Verified 12/04/20 21:10 Remember Penicillins Allergy Cannot Verified 12/04/20 21:10 Remember pravastatin sodium Allergy Cannot Verified 12/04/20 21:10 [From Pravachol] Remember propoxyphene napsylate Allergy Cannot Verified 12/04/20 21:10 [From Darvocet-N] Remember sulfamethoxazole Allergy Cannot Verified 08/27/20 14:47 [From Septra] Remember trimethoprim [From Septra] Allergy Cannot Verified 08/27/20 14:47 Remember Home Meds: Home Meds Insulin Detemir [Levemir] 75 unit SUBCUT BEDTIME 05/14/14 [History] Insulin Lispro [HumaLOG] 8 units SQ BID 07/28/16 [History] Valsartan [Diovan] 80 mg PO DAILY 08/08/16 [History] Triamterene/Hydrochlorothiazid [Triamterene-HCTZ 37.5-25 MG] 1 each PO DAILY 06/25/17 [History] atorvaSTATin [Lipitor] 33.3 mg PO BEDTIME 06/25/17 [History] Hydrocodone/Acetaminophen [Hydrocodon-Acetaminoph 2.5-325] 1 tab PO 1700 PRN 10/19/17 [History] Acetaminophen with Codeine [Tylenol with Codeine #3 Tablet] 1 each PO .HS DAILY PRN 11/12/17 [History] Omeprazole Magnesium [Prilosec] 40 mg PO DAILY 11/14/20 [History] Past Medical History HEENT History: Reports: Impaired Vision Other HEENT History: wears glasses Cardiovascular History: Reports: High Cholesterol, Hypertension Respiratory History: Reports: Bronchitis, Recurrent Gastrointestinal History: Reports: Other (See Below) Other Gastrointestinal History: ULCERATIVE colitis Genitourinary History: Reports: Renal Calculus Musculoskeletal History: Reports: Arthritis, Osteoarthritis, Other (See Below) Other Musculoskeletal History: finger surgery R/T diabetes. Neurological History: Reports: Neuropathy, Diabetic Psychiatric History: Reports: None Endocrine/Metabolic History: Reports: Diabetes, Type II Hematologic History: Reports: None Immunologic History: Reports: None Oncologic (Cancer) History: Reports: None Dermatologic History: Reports: Other (See Below) Other Dermatologic History: sores on scalp R/T diabetes - Infectious Disease History Infectious Disease History: Reports: Chicken Pox, Measles, Mumps - Past Surgical History Head Surgeries/Procedures: Reports: None HEENT Surgical History: Reports: Cataract Surgery Cardiovascular Surgical History: Reports: None Respiratory Surgical History: Reports: None GI Surgical History: Reports: Colonoscopy, EGD, Other (See Below) Other GI Surgeries/Procedures: hemmorhoid surger 1973 Male Surgical History: Reports: Lithotripsy (ESWL) Endocrine Surgical History: Reports: None Neurological Surgical History: Reports: None Oncologic Surgical History: Reports: None Dermatological Surgical History: Reports: None Social & Family History - Family History Family Medical History: No Pertinent Family History - Tobacco Use Tobacco Use Status *Q: Never Tobacco User Second Hand Smoke Exposure: No - Caffeine Use Caffeine Use: Reports: None - Recreational Drug Use Recreational Drug Use: No - Living Situation & Occupation Living situation: Reports: Single Occupation: Retired ED ROS GENERAL - Review of Systems Review Of Systems: Comprehensive ROS is negative, except as noted in HPI. ED EXAM, GENERAL - Physical Exam Exam: See Below Exam Limited By: No Limitations General Appearance: Alert, No Apparent Distress Eye Exam: Bilateral Eye: EOMI, PERRL (4mm), Other (Scleral injection) Ears: Normal External Exam, Normal Canal, Hearing Grossly Normal Ear Exam: Bilateral Ear: Auricle Normal, Canal Normal, Erythema, TM Dull Nose: Normal Inspection, Normal Mucosa, No Blood. No: Nasal Tenderness, Nasal Swelling, Nasal Drainage Throat/Mouth: Normal Voice, No Airway Compromise. No: Normal Oropharynx (Dry mucous membranes) Head: Atraumatic, Normocephalic Neck: Supple, Non-Tender, Full Range of Motion, Lymphadenopathy (R). No: Lymphadenopathy (L) Respiratory/Chest: No Accessory Muscle Use, Chest Non-Tender, Decreased Breath Sounds. No: Crackles, Rales, Rhonchi, Wheezing, Stridor Cardiovascular: Normal Peripheral Pulses, Regular Rate, Rhythm, No Edema, No Gallop, No JVD, No Murmur, No Rub Peripheral Pulses: 2+: Radial (L), Radial (R), Dorsalis Pedis (L), Dorsalis Pedis (R) GI/Abdominal: Normal Bowel Sounds, Soft, Non-Tender, No Organomegaly, No Abnormal Bruit, No Mass Back Exam: Normal Inspection, Full Range of Motion Extremities: Normal Inspection, Normal Range of Motion, Non-Tender, Normal Capillary Refill, No Pedal Edema Neurological: Alert, Oriented, CN II-XII Intact, Normal Cognition, No Motor/Sensory Deficits, Abnormal Gait (Patient utilizes cane for ambulation) Psychiatric: Normal Affect, Normal Mood Skin Exam: Warm, Intact, Normal Color, No Rash, Diaphoretic. No: Ecchymosis, Erythema, Jaundice, Mottled, Pallor, Petechiae Course - Vital Signs Last Recorded V/S: Last Vital Signs Temp 96.8 F L 12/04/20 22:03 Pulse 76 12/04/20 22:03 Resp 18 12/04/20 22:03 BP 115/52 L 12/04/20 22:03 Pulse Ox 100 12/04/20 22:03 - Orders/Labs/Meds Labs: Laboratory Tests 12/04/20 12/04/20 Range/Units 21:05 21:05 WBC 8.2 (5.0-10.0) 10^3/uL RBC 4.61 (4.6-6.2) 10^6/uL Hgb 13.9 L (14.0-18.0) g/dL Hct 42.2 (40.0-54.0) % MCV 91.5 (80-100) fL MCH 30.2 (27.0-34.0) pg MCHC 32.9 L (33.0-35.0) g/dL Plt Count 187 (150-450) 10^3/uL Neut % (Auto) 69.2 (42.2-75.2) % Lymph % (Auto) 20.5 (20.5-50.1) % [place] % (Auto) 7.7 (2-8) % Eos % (Auto) 2.4 (1.0-3.0) % Baso % (Auto) 0.2 (0.0-1.0) % Sodium 139 (136-145) mmol/L Potassium 4.1 (3.5-5.1) mmol/L Chloride 102 (98-107) mmol/L Carbon Dioxide 29 (21-32) mmol/L Anion Gap 12.1 (7-13) mEq/L BUN 23 H (7-18) mg/dL Creatinine 1.31 H (0.70-1.30) mg/dL Est Cr Clr Drug Dosing 50.88 mL/min Estimated GFR (MDRD) 54 BUN/Creatinine Ratio 17.6 (No establ ref range) Glucose 154 H (74-99) mg/dL Calcium 9.1 (8.5-10.1) mg/dL Total Bilirubin 0.3 (0.2-1.0) mg/dL AST 13 L (15-37) U/L ALT 33 (16-63) U/L Alkaline Phosphatase 57 (46-116) U/L Troponin I < 0.017 (0.000-0.056) ng/mL B-Natriuretic Peptide 10 (0-100) pg/ml Total Protein 7.4 (6.4-8.2) g/dL Albumin 3.7 (3.4-5.0) g/dL Globulin 3.7 Albumin/Globulin Ratio 1.0 Meds: Medications Discontinued Medications Generic Name Dose Route Start Last Admin Trade Name Haq PRN Reason Stop Dose Admin Albuterol/Ipratropium 3 ml 12/04/20 21:46 12/04/20 21:58 Duoneb 3.0-0.5 Mg/3 Ml NEB 12/04/20 21:47 3 ml ONETIME ONE Administration Methylprednisolone Sodium Succinate 125 mg 12/04/20 22:08 12/04/20 22:40 Solu-Medrol IM 12/04/20 22:09 Not Given ONETIME ONE - Re-Assessments/Exams Free Text/Narrative Re-Assessment/Exam: 12/04/20 CBC and CMP unremarkable for acute processes. Given negative Troponin, appropriate BNP, and unremarkable EKG, patient has ruled himself for acute cardiac events. CXR unremarkable for acute processes. Physical exam does reveal decreased lung sounds throughout and unilateral lymph node involvement; will treat patient for viral URI with albuterol nebulizer and prednisone burst. Discussed lab and imaging findings with patient. Patient counseled to continue previously prescribed cough medicine for cough and the appropriate use of his two inhalers; Advair for control, Albuterol for rescue. Patient states he does not want to take prednisone due to history of elevation in blood sugars with steroids. Education provided related to transient elevation of blood sugars with steroid use. Patient denies wanting steroids but instead is requesting refills for his albuterol nebulizer and Robitussin. Red flag signs and symptoms which would warrant reevaluation discussed. Patient verbalized understanding and agreement with the plan of care. Departure - Departure Time of Disposition: 22:45 Disposition: Home, Self-Care 01 Condition: Good Clinical Impression: Viral upper respiratory illness - Discharge Information *PRESCRIPTION DRUG MONITORING PROGRAM REVIEWED*: Not Applicable *COPY OF PRESCRIPTION DRUG MONITORING REPORT IN PATIENT SALLY: Not Applicable Instructions: Viral Respiratory Infection, [id number] Forms: ED Department Discharge Additional Instructions: Rx: Robitussin with Codeine Rx: Albuterol Neb 1.) Continue with supportive cares for upper respiratory illness, including Ro bitussin for cough and Albuterol for shortness of breath. 2.) Do not take your albuterol inhaler and albuterol nebulizer together, they are the same medication. 3.) Follow up with your primary care provider in one week if symptoms do not improve, or sooner as warranted. Sepsis Event Note (ED) - Evaluation Sepsis Screening Result: No Definite Risk
[2020-12-04 22:05] VITALS: BP 115/52; PULSE 76
[2020-12-04] MEDS ORDERED: methylPREDNISolone Sodium Succinate 125 MG/2 ML SDV IM ONE (22:08)
== END 2020-12-04 23:15 | disposition home or self-care (01) ==
LOC: DL.ED 20:34
DX: J06.9 Acute upper respiratory infection, unspecified (principal); E78.00 Pure hypercholesterolemia, unspecified; I10 Essential (primary) hypertension; E11.40 Type 2 diabetes mellitus with diabetic neuropathy, unspecified; Z88.6 Allergy status to analgesic agent; Z88.8 Allergy status to other drugs, medicaments and biological substances; Z88.5 Allergy status to narcotic agent; Z88.1 Allergy status to other antibiotic agents; Z88.0 Allergy status to penicillin; Z88.2 Allergy status to sulfonamides; Z79.899 Other long term (current) drug therapy; Z79.4 Long term (current) use of insulin
CPT/HCPCS: 36415; 71046; 80053; 83880; 84484; 85025; 93005; 94640; 99283; 99285-25; J7620-GY

== ENCOUNTER 2021-03-15 06:10 | Observation (INO) | payer BC ==
[2021-03-15] MEDS ORDERED: Ondansetron 4 MG/2 ML SDV IVPUSH ONE (06:16)
[2021-03-15] MEDS ORDERED: Sodium Chloride 0.9% 1,000 ML IV ONE ×3 (06:16→08:28)
[2021-03-15 07:01] LABS: ANION GAP 13.6 mEq/L (7-13); CHLORIDE,CL 101 mmol/L (98-107); SODIUM,NA 141 mmol/L (136-145)
--- NOTE | 2021-03-15 07:09 | EDM.PDOC ---
ED HPI GENERAL MEDICAL PROBLEM - General Chief Complaint: General Stated Complaint: VOMITING, "STOMACH FLU" Time Seen by Provider: 03/15/21 07:08 Source of Information: Reports: Patient, Old Records, Provider (Adrienne VERDUZCO), RN, RN Notes Reviewed History Limitations: Reports: No Limitations - History of Present Illness INITIAL COMMENTS - FREE TEXT/NARRATIVE: Pt arrives to ER from home by ambulance with c/o onset of nausea, vomiting, and generalized body aches at 0230HRS. Pt denies diarrhea. He thinks he has been exposed to the "stomach flu" that is going around. Pt denies fever, cough, chest pain, or edema. Admits to generalized abdominal cramping. Pt has now had one loose BM since arriving to ER. Pt feels lightheaded like he may faint when he tries to get up. Onset Date: 03/15/21 Onset Time: 02:30 Duration: Constant Location: Reports: Abdomen Quality: Reports: Ache, Other (Cramping) Improves with: Reports: None Worsens with: Reports: Eating Context: Reports: Sick Contact Associated Symptoms: Reports: No Other Symptoms Generalized Pain Score (Numeric/FACES): 6 - Related Data Allergies Allergy/AdvReac Type Severity Reaction Status Date / Time acetaminophen Allergy Cannot Verified 03/15/21 06:27 [From Tylenol-Codeine] Remember aspirin Allergy Cannot Verified 03/15/21 06:27 Remember codeine Allergy Cannot Verified 03/15/21 06:27 Remember codeine phosphate Allergy Cannot Verified 03/15/21 06:27 [From Tylenol-Codeine] Remember erythromycin base Allergy Cannot Verified 03/15/21 06:27 [Erythromycin Base] Remember glimepiride [From Amaryl] Allergy Cannot Verified 03/15/21 06:27 Remember glipizide [From Glucotrol] Allergy Cannot Verified 03/15/21 06:27 Remember Penicillins Allergy Cannot Verified 03/15/21 06:27 Remember pravastatin sodium Allergy Cannot Verified 03/15/21 06:27 [From Pravachol] Remember propoxyphene napsylate Allergy Cannot Verified 03/15/21 06:27 [From Darvocet-N] Remember sulfamethoxazole Allergy Cannot Verified 03/15/21 06:27 [From Septra] Remember trimethoprim [From Septra] Allergy Cannot Verified 03/15/21 06:27 Remember Home Meds: Home Meds Insulin Detemir [Levemir] 75 unit SUBCUT BEDTIME 05/14/14 [History] Insulin Lispro [HumaLOG] 8 units SQ BID 07/28/16 [History] Valsartan [Diovan] 80 mg PO DAILY 08/08/16 [History] Triamterene/Hydrochlorothiazid [Triamterene-HCTZ 37.5-25 MG] 1 each PO DAILY 06/25/17 [History] atorvaSTATin [Lipitor] 33.3 mg PO BEDTIME 06/25/17 [History] Hydrocodone/Acetaminophen [Hydrocodon-Acetaminoph 2.5-325] 1 tab PO 1700 PRN 10/19/17 [History] Acetaminophen with Codeine [Tylenol with Codeine #3 Tablet] 1 each PO .HS DAILY PRN 11/12/17 [History] Omeprazole Magnesium [Prilosec] 40 mg PO DAILY 11/14/20 [History] Past Medical History HEENT History: Reports: Impaired Vision Other HEENT History: wears glasses Cardiovascular History: Reports: High Cholesterol, Hypertension Respiratory History: Reports: Bronchitis, Recurrent Gastrointestinal History: Reports: Other (See Below) Other Gastrointestinal History: ULCERATIVE colitis Genitourinary History: Reports: Renal Calculus Musculoskeletal History: Reports: Arthritis, Osteoarthritis, Other (See Below) Other Musculoskeletal History: finger surgery R/T diabetes. Neurological History: Reports: Neuropathy, Diabetic Psychiatric History: Reports: None Endocrine/Metabolic History: Reports: Diabetes, Type II Hematologic History: Reports: None Immunologic History: Reports: None Oncologic (Cancer) History: Reports: None Dermatologic History: Reports: Other (See Below) Other Dermatologic History: sores on scalp R/T diabetes - Infectious Disease History Infectious Disease History: Reports: Chicken Pox, Measles, Mumps - Past Surgical History Head Surgeries/Procedures: Reports: None HEENT Surgical History: Reports: Cataract Surgery Cardiovascular Surgical History: Reports: None Respiratory Surgical History: Reports: None GI Surgical History: Reports: Colonoscopy, EGD, Other (See Below) Other GI Surgeries/Procedures: hemmorhoid surger 1972 Male Surgical History: Reports: Lithotripsy ([facility]) Endocrine Surgical History: Reports: None Neurological Surgical History: Reports: None Oncologic Surgical History: Reports: None Dermatological Surgical History: Reports: None Social & Family History - Family History Family Medical History: No Pertinent Family History - Tobacco Use Tobacco Use Status *Q: Current Status Unknown - Caffeine Use Caffeine Use: Reports: Soda - Recreational Drug Use Recreational Drug Use: No - Living Situation & Occupation Living situation: Reports: Single Occupation: Retired ED ROS GENERAL - Review of Systems Review Of Systems: Comprehensive ROS is negative, except as noted in HPI. ED EXAM, GENERAL - Physical Exam Exam: See Below Exam Limited By: No Limitations General Appearance: Alert, No Apparent Distress, Obese, Other (Acutely ill, but non-toxic appearing) Eye Exam: Bilateral Eye: Normal Inspection (No scleral icterus) Nose: Normal Inspection, Normal Mucosa, No Blood Throat/Mouth: Normal Lips, Normal Voice, No Airway Compromise, Other (Dry oral mucosa) Head: Atraumatic, Normocephalic Neck: Normal Inspection, Supple, Non-Tender, Full Range of Motion Respiratory/Chest: No Respiratory Distress, Lungs Clear, No Accessory Muscle Use, Chest Non-Tender, Decreased Breath Sounds Cardiovascular: Regular Rate, Rhythm GI/Abdominal: Soft, No Organomegaly, No Distention, Tender (Generalized ), Abnormal Bowel Sounds (Slightly hyperactive). No: Guarding, Rigid, Rebound (Male) Exam: Deferred Rectal (Males) Exam: Deferred Back Exam: Normal Inspection Extremities: Normal Range of Motion, Non-Tender, Pedal Edema (Trace) Neurological: Alert, Oriented, No Motor/Sensory Deficits Psychiatric: Depressed Mood, Flat Affect Skin Exam: Warm, Dry, Intact, Normal Color, No Rash Course - Vital Signs Last Recorded V/S: Last Vital Signs Temp 98.1 F 03/15/21 06:12 Pulse 78 03/15/21 06:12 Resp 18 03/15/21 06:12 BP 101/65 03/15/21 06:12 Pulse Ox 97 03/15/21 06:12 - Orders/Labs/Meds Orders: Active Orders 24 hr Category Date Time Status Blood Glucose Check, Bedside [RC] ONETIME Care 03/15/21 08:29 Active Blood Glucose Check, Bedside [RC] ONETIME Care 03/15/21 09:32 Active POC Glucose [Blood Glucose Check, Bedside] [RC] ONETIME Care 03/15/21 07:50 Active Labs: Laboratory Tests 03/15/21 03/15/21 03/15/21 Range/Units 06:32 06:32 06:32 WBC 15.5 H (5.0-10.0) 10^3/uL RBC 5.46 (4.6-6.2) 10^6/uL Hgb 16.4 D (14.0-18.0) g/dL Hct 49.5 (40.0-54.0) % MCV 90.7 (80-100) fL MCH 30.0 (27.0-34.0) pg MCHC 33.1 (33.0-35.0) g/dL Plt Count 214 (150-450) 10^3/uL Neut % (Auto) 83.6 H (42.2-75.2) % Lymph % (Auto) 8.3 L (20.5-50.1) % [place] % (Auto) 7.9 (2-8) % Eos % (Auto) 0.0 L (1.0-3.0) % Baso % (Auto) 0.2 (0.0-1.0) % Add Manual Diff Yes Neutrophils % (Manual) 70 (42-75) % Band Neutrophils % 15 % Lymphocytes % (Manual) 9 L (20-50) % Monocytes % (Manual) 5 (2-8) % Myelocytes % 1 Sodium 141 (136-145) mmol/L Potassium 3.6 (3.5-5.1) mmol/L Chloride 101 (98-107) mmol/L Carbon Dioxide 30 (21-32) mmol/L Anion Gap 13.6 H (7-13) mEq/L BUN 38 H (7-18) mg/dL Creatinine 1.37 H (0.70-1.30) mg/dL Est Cr Clr Drug Dosing 48.74 mL/min Estimated GFR (MDRD) 51 BUN/Creatinine Ratio 27.7 (No establ ref range) Glucose 131 H (70-99) mg/dL POC Glucose (70-99) mg/dL Lactic Acid 3.0 H* (0.4-2.0) mmol/L Calcium 8.8 (8.5-10.1) mg/dL Total Bilirubin 0.5 (0.2-1.0) mg/dL AST 15 (15-37) U/L ALT 44 (16-63) U/L Alkaline Phosphatase 58 (46-116) U/L Total Protein 8.0 (6.4-8.2) g/dL Albumin 4.0 (3.4-5.0) g/dL Globulin 4.0 Albumin/Globulin Ratio 1.0 Ketones Negative 03/15/21 03/15/21 03/15/21 Range/Units 07:33 08:38 09:31 WBC (5.0-10.0) 10^3/uL RBC (4.6-6.2) 10^6/uL Hgb (14.0-18.0) g/dL Hct (40.0-54.0) % MCV (80-100) fL MCH (27.0-34.0) pg MCHC (33.0-35.0) g/dL Plt Count (150-450) 10^3/uL Neut % (Auto) (42.2-75.2) % Lymph % (Auto) (20.5-50.1) % [place] % (Auto) (2-8) % Eos % (Auto) (1.0-3.0) % Baso % (Auto) (0.0-1.0) % Add Manual Diff Neutrophils % (Manual) (42-75) % Band Neutrophils % % Lymphocytes % (Manual) (20-50) % Monocytes % (Manual) (2-8) % Myelocytes % Sodium (136-145) mmol/L Potassium (3.5-5.1) mmol/L Chloride (98-107) mmol/L Carbon Dioxide (21-32) mmol/L Anion Gap (7-13) mEq/L BUN (7-18) mg/dL Creatinine (0.70-1.30) mg/dL Est Cr Clr Drug Dosing mL/min Estimated GFR (MDRD) BUN/Creatinine Ratio (No establ ref range) Glucose (70-99) mg/dL POC Glucose 104 H 90 (70-99) mg/dL Lactic Acid 1.7 (0.4-2.0) mmol/L Calcium (8.5-10.1) mg/dL Total Bilirubin (0.2-1.0) mg/dL AST (15-37) U/L ALT (16-63) U/L Alkaline Phosphatase (46-116) U/L Total Protein (6.4-8.2) g/dL Albumin (3.4-5.0) g/dL Globulin Albumin/Globulin Ratio Ketones 03/15/21 Range/Units 09:36 WBC (5.0-10.0) 10^3/uL RBC (4.6-6.2) 10^6/uL Hgb (14.0-18.0) g/dL Hct (40.0-54.0) % MCV (80-100) fL MCH (27.0-34.0) pg MCHC (33.0-35.0) g/dL Plt Count (150-450) 10^3/uL Neut % (Auto) (42.2-75.2) % Lymph % (Auto) (20.5-50.1) % [place] % (Auto) (2-8) % Eos % (Auto) (1.0-3.0) % Baso % (Auto) (0.0-1.0) % Add Manual Diff Neutrophils % (Manual) (42-75) % Band Neutrophils % % Lymphocytes % (Manual) (20-50) % Monocytes % (Manual) (2-8) % Myelocytes % Sodium (136-145) mmol/L Potassium (3.5-5.1) mmol/L Chloride (98-107) mmol/L Carbon Dioxide (21-32) mmol/L Anion Gap (7-13) mEq/L BUN (7-18) mg/dL Creatinine (0.70-1.30) mg/dL Est Cr Clr Drug Dosing mL/min Estimated GFR (MDRD) BUN/Creatinine Ratio (No establ ref range) Glucose (70-99) mg/dL POC Glucose 113 H (70-99) mg/dL Lactic Acid (0.4-2.0) mmol/L Calcium (8.5-10.1) mg/dL Total Bilirubin (0.2-1.0) mg/dL AST (15-37) U/L ALT (16-63) U/L Alkaline Phosphatase (46-116) U/L Total Protein (6.4-8.2) g/dL Albumin (3.4-5.0) g/dL Globulin Albumin/Globulin Ratio Ketones Meds: Medications Discontinued Medications Generic Name Dose Route Start Last Admin Trade Name Freq PRN Reason Stop Dose Admin Dextrose/Water 25 ml 03/15/21 08:51 03/15/21 08:58 50% Dextrose In Water 50 Ml Syringe IVPUSH 03/15/21 08:52 25 ml ONETIME ONE Administration Famotidine 20 mg 03/15/21 07:16 03/15/21 07:26 Famotidine 20 Mg/2 Ml Sdv IVPUSH 03/15/21 07:17 20 mg ONETIME ONE Administration Sodium Chloride 1,000 mls @ 999 mls/hr 03/15/21 06:16 03/15/21 06:25 Normal Saline IV 03/15/21 07:16 999 mls/hr .BOLUS ONE Administration Sodium Chloride 1,000 mls @ 999 mls/hr 03/15/21 07:15 03/15/21 07:26 Normal Saline IV 03/15/21 08:15 999 mls/hr .BOLUS ONE Administration Sodium Chloride 1,000 mls @ 999 mls/hr 03/15/21 08:28 03/15/21 08:39 Normal Saline IV 03/15/21 09:28 999 mls/hr .BOLUS ONE Administration Ondansetron HCl 4 mg 03/15/21 06:16 03/15/21 06:25 Ondansetron 4 Mg/2 Ml Sdv IVPUSH 03/15/21 06:17 4 mg ONETIME ONE Administration Promethazine HCl 25 mg 03/15/21 07:15 03/15/21 07:26 Promethazine 25 Mg/Ml Sdv IM 03/15/21 07:16 25 mg ONETIME ONE Administration Departure - Departure Time of Disposition: 10:11 (admit to Dr. Andujar) Disposition: Refer to Observation Condition: Fair Clinical Impression: Acute gastroenteritis, IDDM (insulin dependent diabetes mellitus) - Discharge Information *PRESCRIPTION DRUG MONITORING PROGRAM REVIEWED*: Not Applicable *COPY OF PRESCRIPTION DRUG MONITORING REPORT IN PATIENT SALLY: Not Applicable Forms: ED Department Discharge Sepsis Event Note (ED) - Evaluation Sepsis Screening Result: No Definite Risk - Focused Exam Vital Signs: Vital Signs Temp Pulse Resp BP Pulse Ox 03/15/21 06:12 98.1 F 78 18 101/65 97 - My Orders Last 24 Hours: My Active Orders 03/15/21 07:50 POC Glucose [Blood Glucose Check, Bedside] [RC] ONETIME 03/15/21 08:29 Blood Glucose Check, Bedside [RC] ONETIME 03/15/21 09:32 Blood Glucose Check, Bedside [RC] ONETIME - Assessment/Plan Last 24 Hours: My Active Orders 03/15/21 07:50 POC Glucose [Blood Glucose Check, Bedside] [RC] ONETIME 03/15/21 08:29 Blood Glucose Check, Bedside [RC] ONETIME 03/15/21 09:32 Blood Glucose Check, Bedside [RC] ONETIME
[2021-03-15] MEDS ORDERED: Promethazine 25 MG/ML SDV IM ONE (07:15)
[2021-03-15] MEDS ORDERED: Famotidine 20 MG/2 ML SDV IVPUSH ONE (07:16)
[2021-03-15] MEDS ORDERED: 50% Dextrose in Water 50 ML Syringe IVPUSH ONE (08:51)
[2021-03-15] MEDS ORDERED: Ondansetron 4 MG/2 ML SDV IVPUSH PRN (10:48)
[2021-03-15] MEDS ORDERED: Acetaminophen 325 MG Tab PO PRN (10:48)
[2021-03-15] MEDS ORDERED: Sodium Chloride 0.9% 10 ML Syringe FLUSH PRN (10:48)
[2021-03-15] MEDS ORDERED: Glucagon,Human Recombinant 1 MG Vial IM PRN (10:52)
[2021-03-15] MEDS ORDERED: 50% Dextrose in Water 50 ML Syringe IV PRN (10:52)
--- NOTE | 2021-03-15 10:56 | PCM.SN.2 ---
- Free Text/Narrative Note: START OF DOCTOR EMAMIS HISTORY AND PHYSICAL / CONSULTATION NOTE Chief Complaint: "I feel sick" History of Present Illness: The patient is a 69-year-old male who presents with chief plane of nausea and vomiting. Please note that it is noted by myself as well as the nursing staff that the patient is not cooperative during our respective interviews. From what I was able to ascertain the patient Girish that he had Thai food on the morning of March 15, 2021 developed nausea and had episodes of emesis. He admits to onset of rigors as well as cough. He denies fever, wheeze, abdominal pain. The patient is also developed diarrhea. He denies melena or hematochezia. He presents for further evaluation Surgical History: Umbilical herniorrhaphy, right second and third digit surgeries, bilateral cataract surgery, hemorrhoidectomy, lithotripsy Family History: Cancer, stroke, diabetes, coronary artery disease, hypertension, hyperlipidemia Social History: Tobacco: Never Alcohol: Denies Caffeine: Coffee, cola Drugs: Never Allergies: Penicillin, Tylenol, aspirin, codeine, erythromycin, glimepiride, glipizide, propoxyphene/Darvocet Code Status: Full Pertinent Laboratory Results / Pertinent Radiology Results / Pertinent Diagnostic Results / Pertinent Vital Signs: Blood pressure 101/65, pulse 78, respiration 18, temperature 90.1 degrees, 90% room air, creatinine 1.37, white blood count 15.5 Physical Examination: General: -Alert -Uncooperative -No acute distress -No dyspnea -No tachypnea -Obese Head: -Atraumatic -Normocephalic Eyes: -Pupils equally round and reactive to light and accommodation -Extraocular muscles intact Neurological: -Cranial nerves II-XII intact Neck: -No jugular venous distention -No thyromegaly -No cervical lymphadenopathy Heart: -Regular rate -Regular rhythm -No murmurs -No gallops -No rubs Lungs: -No wheeze -No rhonchi -No rales Abdomen: -Normal bowel sounds in all four quadrants -No rebound -No guarding -No tenderness Extremities: -2/4 pulse in all four extremities -No clubbing -No cyanosis -No edema -No calf tenderness present bilaterally -Negative Homans sign bilaterally Musculoskeletal: -5/5 bilateral upper extremity strength -5/5 bilateral lower extremity strength -Sensorium of bilateral upper extremities are equal and intact -Sensorium of bilateral lower extremities are equal and intact Additional Details / Additional Findings / Exceptions / Miscellaneous: Assessment / Plan: Gastroenteritis. IV normal saline 100 mL/h. Supportive measures Osteoarthritis History nephrolithiasis Ulcerative colitis Acute renal insufficiency. Will monitor creatinine level intermittently. IV normal saline 100 mL/h Chronic pain History of cholelithiasis Degenerative disc disease Neuropathy Diabetes. Will check glucose before every meal and at bedtime and provide insulin sliding scale GERD Hyperlipidemia Hypertension Obesity. Patient be counseled regarding lifestyle modification BPH DVT prophylaxis. Heparin 5000 units subcutaneously every 12 hours Disposition: At the time of admission the patient's medications were not yet inputted to the EMR/[facility] system. Once they are there will be reviewed and reconciled. Anticipate discharge within 24 hours END OF DOCTOR EMAMIS HISTORY AND PHYSICAL / CONSULTATION NOTE
[2021-03-15] MEDS: Sodium Chloride 0.9% 1,000 ML IV SCH ×2 (12:18→22:19)
[2021-03-15] MEDS: Insulin Lispro 100 Units/ML 3 ML Vial SUBCUT SCH ×3 (12:24→21:30)
[2021-03-15] MEDS: Heparin Sodium 5,000 Units/ML Vial SUBCUT SCH (20:25)
[2021-03-16] MEDS: Acetaminophen 325 MG Tab PO PRN ×2 (01:02→08:52)
[2021-03-16 06:48] LABS: ANION GAP 10.8 mEq/L (7-13)
[2021-03-16] MEDS: Sodium Chloride 0.9% 1,000 ML IV SCH (08:00)
--- NOTE | 2021-03-16 08:13 | PCM.SN.2 ---
- Free Text/Narrative Note: START OF DOCTOR EMAMIS DISCHARGE SUMMARY Date of Admission: March 15, 2021 Date of Discharge: 11 AM on April 02, 2021 Primary Diagnosis: Gastroenteritis Secondary Diagnosis: Osteoarthritis History of nephrolithiasis Ulcerative colitis Acute renal insufficiency, resolved Chronic pain History of cholelithiasis Degenerative disease Neuropathy Diabetes GERD Hyperlipidemia Hypertension Obesity BPH Anemia Hypercalcemia, status post treatment Consultations: None Condition on Discharge: Stable Disposition: The patient will be advised to follow-up with his primary care physician or provider 7 to 10 days post discharge for posthospitalization evaluation Discharge Medications: Prilosec 10 mg p.o. daily Lantus 9 5 units subcutaneously nightly Insulin aspartate 50 units subcutaneously twice daily with meals and 25 units subcutaneously nightly Flonase Sensimist: 2 puffs in each nare daily Erythromycin base ophthalmic ointment 0.5%: 1 application to both eyes nightly Flagyl 500 mg p.o. every 6 hours. Quantity 42. 0 refills END OF DOCTOR EMAMIS DISCHARGE SUMMARY
--- NOTE | 2021-03-16 08:16 | PCM.SN.2 ---
- Free Text/Narrative Note: START OF DOCTOR EMAMIS PROGRESS NOTE Subjective: The patient indicates that he is feeling weak however he feels better than he did during my encounter with him on March 15, 2021. He denies fever, rigors, nausea, vomiting, cough, wheeze, abdominal pain, chest pain, dyspnea. The nursing staff has informed me that he is still having loose stool however it is not wlil diarrhea. I explained to the patient his current medical condition and plan of care and I have answered all of his questions Objective: General: -Alert -No acute distress -No dyspnea -No tachypnea -Obese Heart: -Regular rate -Regular rhythm -No murmurs -No gallops -No rubs Lungs: -No wheeze -No rhonchi -No rales Abdomen: -Normal bowel sounds in all four quadrants -No rebound -No guarding -No tenderness Extremities: -2/4 pulse in all four extremities -No clubbing -No cyanosis -No edema Additional Details / Additional Findings / Exceptions / Miscellaneous: Pertinent Laboratory Results / Pertinent Radiology Results / Pertinent Diagnostic Results / Pertinent Vital Signs: Vital signs stable, hemoglobin 13.7 Assessment / Plan: Gastroenteritis. IV normal saline 100 mL/h plus Flagyl 500 mg IV every 6 hours Anemia. Will monitor hemoglobin levels intermittently. Check serum ferritin, iron panel, fecal occult blood Hypocalcemia. Will monitor calcium levels intermittently and supplement as necessary Osteoarthritis History nephrolithiasis Ulcerative colitis Acute renal insufficiency. Will monitor creatinine level intermittently. IV normal saline 100 mL/h Chronic pain History of cholelithiasis Degenerative disc disease Neuropathy Diabetes. Will check glucose before every meal and at bedtime and provide i nsulin sliding scale GERD Hyperlipidemia Hypertension Obesity. Patient be counseled regarding lifestyle modification BPH DVT prophylaxis. Heparin 5000 units subcutaneously every 12 hours Disposition: The patient may be a candidate for discharge on this day of March 16, 2021 if he remains afebrile END OF DOCTOR EMAMIS PROGRESS NOTE
[2021-03-16] MEDS: Heparin Sodium 5,000 Units/ML Vial SUBCUT SCH (08:50)
[2021-03-16] MEDS: Insulin Lispro 100 Units/ML 3 ML Vial SUBCUT SCH ×3 (08:50→17:15)
[2021-03-16] MEDS ORDERED: OMEPRAZOLE 10 MG PO SCH (09:00)
[2021-03-16] MEDS ORDERED: FLUTICASONE FUROATE NASBOTH SCH (09:00)
[2021-03-16] MEDS: metroNIDAZOLE/Normal Saline 500 MG in Premix Bag 100 BAG IV SCH ×2 (09:22→16:13)
[2021-03-16] MEDS ORDERED: Calcium Gluconate 10% 1 GM/10 ML SDV IVPUSH ONE (10:00)
[2021-03-16 16:18] VITALS: BP 117/42; PULSE 76
[2021-03-16] MEDS ORDERED: Non-Formulary Medication 1 Each (Insulin Aspart [Novolog] 100 UNIT/ML Pen) SQ SCH (18:00)
[2021-03-16] MEDS ORDERED: Non-Formulary Medication 1 Each (Insulin Aspart [Novolog] 100 UNIT/ML Pen) SUBCUT SCH (21:00)
[2021-03-16] MEDS ORDERED: Erythromycin Base 0.5% Ophth Oint 1 GM Tube EYEBOTH SCH (21:00)
[2021-03-16] MEDS ORDERED: Non-Formulary Medication 1 Each (Insulin Glarg,Human.Rec.Analog [Lantus Solostar] 100 UNIT SQ SCH (21:00)
== END 2021-03-16 18:50 | disposition home or self-care (01) ==
LOC: DL.ED 06:10 → DL.MS 10:11
PROVIDERS: ADMIT Internal Medicine; ATTEND Internal Medicine
DX: K52.9 Noninfective gastroenteritis and colitis, unspecified (principal); K51.90 Ulcerative colitis, unspecified, without complications; E11.40 Type 2 diabetes mellitus with diabetic neuropathy, unspecified; N17.9 Acute kidney failure, unspecified; G89.29 Other chronic pain; I10 Essential (primary) hypertension; E66.9 Obesity, unspecified; E78.5 Hyperlipidemia, unspecified; N40.0 Benign prostatic hyperplasia without lower urinary tract symptoms; E78.00 Pure hypercholesterolemia, unspecified; Z20.822 Contact with and (suspected) exposure to COVID-19; Z98.890 Other specified postprocedural states; Z82.49 Family history of ischemic heart disease and other diseases of the circulatory system; Z88.0 Allergy status to penicillin; Z88.8 Allergy status to other drugs, medicaments and biological substances; Z88.5 Allergy status to narcotic agent
CPT/HCPCS: 36415; 80048; 80053; 82009; 82728; 82947; 83540; 83550; 83605; 85025; 85651; 86140; 99217; 99219; 99284; A9270-GY; J0610; J1644; J1815-GY; J2405; J2550; J3490; J7030; U0002

== ENCOUNTER 2021-06-03 23:15 | Emergency (ER) | payer BC, MEDICARE ==
[2021-06-03] MEDS ORDERED: Azithromycin 250 MG Tab PO ONE (23:16)
[2021-06-04 00:15] VITALS: BP 151/56; PULSE 77
--- NOTE | 2021-06-04 00:24 | EDM.PDOC ---
ED HPI GENERAL MEDICAL PROBLEM - General Stated Complaint: LEFT EAR, SORE THROAT, ACHEY, FATIGUE Time Seen by Provider: 06/04/21 00:05 Source of Information: Reports: Patient History Limitations: Reports: No Limitations - History of Present Illness INITIAL COMMENTS - FREE TEXT/NARRATIVE: This 71 yo male patient reports to the ED due to a 5 day history of a left ear ache, sore throat and generalized fatigue. The patient reports he waited for a while hoping his symptoms would go away, but they have continued. The patient reports he has started to have a cough over the past couple of days also. The alix del cid reports no fevers, but intermittent chills. Onset: Unknown/Unsure Duration: Day(s): Location: Reports: Neck Quality: Reports: Ache, Dull Severity: Moderate Improves with: Reports: None Worsens with: Reports: None Context: Reports: Other Associated Symptoms: Reports: No Other Symptoms - Related Data Allergies Allergy/AdvReac Type Severity Reaction Status Date / Time aspirin Allergy Cannot Verified 06/04/21 00:14 Remember glimepiride [From Amaryl] Allergy Cannot Verified 06/04/21 00:14 Remember glipizide [From Glucotrol] Allergy Cannot Verified 06/04/21 00:14 Remember Penicillins Allergy Cannot Verified 06/04/21 00:14 Remember pravastatin sodium Allergy Cannot Verified 06/04/21 00:14 [From Pravachol] Remember propoxyphene napsylate Allergy Cannot Verified 06/04/21 00:14 [From Darvocet-N] Remember sulfamethoxazole Allergy Cannot Verified 06/04/21 00:14 [From Septra] Remember trimethoprim [From Septra] Allergy Cannot Verified 06/04/21 00:14 Remember Home Meds: Home Meds Erythromycin Base [Erythromycin 0.5% Ophth Oint] 1 applic EYEBOTH BEDTIME 03/15/21 [History] Fluticasone Furoate [Flonase Sensimist] 2 sprays NASBOTH DAILY 03/15/21 [History] Insulin Aspart [NovoLOG] 25 units SUBCUT BEDTIME 03/15/21 [History] Insulin Aspart [NovoLOG] 50 units SQ BIDMEALS 03/15/21 [History] Insulin Glarg,Human.Rec.Analog [Lantus Solostar] 75 units SQ BEDTIME 03/15/21 [History] Omeprazole 10 mg PO DAILY 03/15/21 [History] metroNIDAZOLE [Flagyl] 500 mg PO Q6H 7 Days #42 tab 03/16/21 [Rx] Past Medical History HEENT History: Reports: Cataract, Impaired Vision Other HEENT History: wears glasses Cardiovascular History: Reports: High Cholesterol, Hypertension Respiratory History: Reports: Bronchitis, Recurrent Gastrointestinal History: Reports: Other (See Below) Other Gastrointestinal History: ULCERATIVE colitis Genitourinary History: Reports: Renal Calculus Musculoskeletal History: Reports: Arthritis, Osteoarthritis, Other (See Below) Other Musculoskeletal History: finger surgery R/T diabetes. Neurological History: Reports: Neuropathy, Diabetic Psychiatric History: Reports: None Endocrine/Metabolic History: Reports: Diabetes, Type II Hematologic History: Reports: None Immunologic History: Reports: None Oncologic (Cancer) History: Reports: None Dermatologic History: Reports: Other (See Below) Other Dermatologic History: sores on scalp R/T diabetes - Infectious Disease History Infectious Disease History: Reports: Chicken Pox, Measles, Mumps - Past Surgical History Head Surgeries/Procedures: Reports: None HEENT Surgical History: Reports: Cataract Surgery Cardiovascular Surgical History: Reports: None Respiratory Surgical History: Reports: None GI Surgical History: Reports: Colonoscopy, EGD, Other (See Below) Other GI Surgeries/Procedures: hemmorhoid surgery 1973 Male Surgical History: Reports: Lithotripsy ([facility]) Endocrine Surgical History: Reports: None Neurological Surgical History: Reports: None Oncologic Surgical History: Reports: None Dermatological Surgical History: Reports: None Social & Family History - Family History Family Medical History: No Pertinent Family History - Tobacco Use Tobacco Use Status *Q: Never Tobacco User Second Hand Smoke Exposure: No - Caffeine Use Caffeine Use: Reports: None - Recreational Drug Use Recreational Drug Use: No - Living Situation & Occupation Living situation: Reports: Single Occupation: Retired ED ROS ENT - Review of Systems Review Of Systems: Comprehensive ROS is negative, except as noted in HPI. ED EXAM, ENT - Physical Exam Exam: See Below Exam Limited By: No Limitations General Appearance: Alert, WD/WN, Mild Distress Eye Exam: Bilateral Eye: EOMI, Normal Inspection, PERRL Ears: Normal External Exam, Normal Canal, Hearing Grossly Normal, Normal TMs Nose: Normal Inspection, Normal Mucousa, No Blood Mouth/Throat: Pharyngeal Erythema, Tonsillar Erythema, Tonsillar Swelling Head: Atraumatic, Normocephalic Neck: Normal Inspection, Supple, Non-Tender, Full Range of Motion Respiratory/Chest: No Respiratory Distress, Lungs Clear, Normal Breath Sounds, No Accessory Muscle Use, Chest Non-Tender Cardiovascular: Normal Peripheral Pulses, Regular Rate, Rhythm, No Edema, No Gallop, No JVD, No Murmur, No Rub GI/Abdominal: Normal Bowel Sounds, Soft, Non-Tender, No Organomegaly, No Distention, No Abnormal Bruit, No Mass (Male) Exam: Deferred Rectal (Males) Exam: Deferred Back: Normal Inspection, Full Range of Motion Extremities: Normal Inspection, Normal Range of Motion, Non-Tender, No Pedal Edema, Normal Capillary Refill Neurological: Alert, Oriented, CN II-XII Intact, Normal Cognition, Normal Gait, Normal Reflexes, No Motor/Sensory Deficits Psychiatric: Normal Affect, Normal Mood Skin: Warm, Dry, Intact, Normal Color, No Rash Lymphatic: No Adenopathy Course - Vital Signs Last Recorded V/S: Last Vital Signs Temp 97.3 F 06/04/21 00:14 Pulse 77 06/04/21 00:14 Resp 18 06/04/21 00:14 BP 151/56 H 06/04/21 00:14 Pulse Ox 95 06/04/21 00:14 - Orders/Labs/Meds Orders: Active Orders 24 hr Category Date Time Status CULTURE STREP A CONFIRMATION [] Stat Lab 06/04/21 00:08 Results STREP SCRN A RAPID W CULT CONF [] Stat Lab 06/04/21 00:20 Ordered Departure - Departure Time of Disposition: 00:56 Disposition: Home, Self-Care 01 Condition: Fair Clinical Impression: Bronchitis Pharyngitis Qualifiers: Pharyngitis/tonsillitis etiology: unspecified etiology Qualified Code(s): J02.9 - Acute pharyngitis, unspecified - Discharge Information *PRESCRIPTION DRUG MONITORING PROGRAM REVIEWED*: Not Applicable *COPY OF PRESCRIPTION DRUG MONITORING REPORT IN PATIENT SALLY: Not Applicable Instructions: Pharyngitis, [id number], Acute Bronchitis, Adult, [id number] Forms: ED Department Discharge Care Plan Goals: The patient was advised of the examination and lab results during the visit. The patient was discharged with a script for Azithromycin (250 mg) #6 to take 2 by mouth on day 1 and 1 by mouth on days 2-5. The patient should be encouraged to increase their oral fluid intake over the next 48 hours. The patient may continue to use [id number] medications for temporary symptom relief. If the patient has any additional symptoms or concerns, the patient should either return to the emergency department or follow-up with his primary care facility. Sepsis Event Note (ED) - Evaluation Sepsis Screening Result: No Definite Risk - Focused Exam Vital Signs: Vital Signs Temp Pulse Resp BP Pulse Ox 06/04/21 00:14 97.3 F 77 18 151/56 H 95 - My Orders Last 24 Hours: My Active Orders 06/04/21 00:08 CULTURE STREP A CONFIRMATION [RM] Stat 06/04/21 00:20 STREP SCRN A RAPID W CULT CONF [RM] Stat - Assessment/Plan Last 24 Hours: My Active Orders 06/04/21 00:08 CULTURE STREP A CONFIRMATION [RM] Stat 06/04/21 00:20 STREP SCRN A RAPID W CULT CONF [RM] Stat
[2021-06-04] MEDS ORDERED: Azithromycin 250 MG Tab ONE (01:02)
== END 2021-06-04 01:07 | disposition home or self-care (01) ==
LOC: DL.ED 23:15
DX: J40 Bronchitis, not specified as acute or chronic (principal); J02.9 Acute pharyngitis, unspecified; E78.00 Pure hypercholesterolemia, unspecified; I10 Essential (primary) hypertension; E11.40 Type 2 diabetes mellitus with diabetic neuropathy, unspecified; Z79.4 Long term (current) use of insulin; Z88.8 Allergy status to other drugs, medicaments and biological substances; Z88.1 Allergy status to other antibiotic agents; Z88.0 Allergy status to penicillin
CPT/HCPCS: 87081; 87430; 99283; A9270

== ENCOUNTER 2022-04-21 12:34 | Emergency (ER) | payer BC, MEDICARE ==
[2022-04-21 12:46] VITALS: BP 143/69; PULSE 69
== END 2022-04-21 16:36 | disposition left against medical advice (07) ==
LOC: DL.ED 12:34
DX: Z53.21 Procedure and treatment not carried out due to patient leaving prior to being seen by health care provider (principal)

== ENCOUNTER 2022-06-15 15:11 | Emergency (ER) | payer BC, MEDICARE ==
[2022-06-15 15:24] VITALS: BP 148/76; PULSE 75
== END 2022-06-15 16:00 | disposition home or self-care (01) ==
LOC: DL.ED 15:11
DX: R20.0 Anesthesia of skin (principal); E78.00 Pure hypercholesterolemia, unspecified; I10 Essential (primary) hypertension; E11.9 Type 2 diabetes mellitus without complications; E66.9 Obesity, unspecified; Z68.38 Body mass index [BMI] 38.0-38.9, adult; Z88.8 Allergy status to other drugs, medicaments and biological substances; Z88.0 Allergy status to penicillin; Z88.1 Allergy status to other antibiotic agents; Z79.4 Long term (current) use of insulin; Z79.899 Other long term (current) drug therapy
CPT/HCPCS: 99283

== ENCOUNTER 2023-08-11 16:06 | Emergency (ER) | payer BC, MEDICARE ==
[2023-08-11 16:50] VITALS: BP 151/78; PULSE 78
[2023-08-11 17:36] LABS: BASOPHILS PERCENT AUTO 0.4 % (0.0-1.0); EOSINOPHILS PERCENT AUTO 3.9 % (1.0-3.0); HEMOGLOBIN 14.4 g/dL (14.0-18.0); LYMPHOCYTES PERCENT AUTO 24.3 % (20.5-50.1); MEAN CORPUSCULAR HEMOGLOBIN 30.4 pg (27.0-34.0); MEAN CORPUSCULAR HGB CONC 34.3 g/dL (33.0-35.0); MEAN CORPUSCULAR VOLUME 88.6 fL (80-100); MONOCYTES PERCENT AUTO 8.6 % (2-8); NEUTROPHILS PERCENT AUTO 62.8 % (42.2-75.2); PLATELET COUNT,PLT 185 10^3/uL (150-450); RED BLOOD CELL COUNT 4.74 10^6/uL (4.6-6.2); WHITE BLOOD CELL COUNT,WBC 7.1 10^3/uL (5.0-10.0)
[2023-08-11 17:56] LABS: ALBUMIN 3.8 g/dL (3.4-5.0); ANION GAP 14.2 mEq/L (7-13); BILIRUBIN TOTAL 0.4 mg/dL (0.2-1.0); BUN/CREATININE RATIO 16.2 (No establ ref range); CALCIUM 9.8 mg/dL (8.5-10.1); CREATININE 1.11 mg/dL (0.70-1.30); EST CRCL DRUG DOSING (CG) 56.49 mL/min; POTASSIUM,K 4.2 mmol/L (3.5-5.1); PROTEIN TOTAL,TP 7.5 g/dL (6.4-8.2)
== END 2023-08-11 18:22 | disposition home or self-care (01) ==
LOC: DL.ED 16:06
DX: S86.911A Strain of unspecified muscle(s) and tendon(s) at lower leg level, right leg, initial encounter (principal); I10 Essential (primary) hypertension; E78.00 Pure hypercholesterolemia, unspecified; J45.909 Unspecified asthma, uncomplicated; M19.90 Unspecified osteoarthritis, unspecified site; E11.40 Type 2 diabetes mellitus with diabetic neuropathy, unspecified; E66.9 Obesity, unspecified; Z68.39 Body mass index [BMI] 39.0-39.9, adult; Z88.2 Allergy status to sulfonamides; Z88.8 Allergy status to other drugs, medicaments and biological substances; Z88.0 Allergy status to penicillin; Z79.899 Other long term (current) drug therapy; Z79.4 Long term (current) use of insulin
CPT/HCPCS: 36415; 80053; 85025; 85379; 99283

== ENCOUNTER 2024-06-21 21:46 | Emergency (ER) | payer BC ==
[2024-06-21 22:22] VITALS: BP 166/70; PULSE 93
[2024-06-21] MEDS: Doxycycline Monohydrate 100 MG Cap PO ONE (23:37)
== END 2024-06-21 23:43 | disposition home or self-care (01) ==
LOC: DL.ED 21:46
DX: J02.9 Acute pharyngitis, unspecified (principal); I10 Essential (primary) hypertension; E78.00 Pure hypercholesterolemia, unspecified; E66.9 Obesity, unspecified; E11.9 Type 2 diabetes mellitus without complications; Z88.0 Allergy status to penicillin; Z88.2 Allergy status to sulfonamides; Z88.8 Allergy status to other drugs, medicaments and biological substances; Z79.4 Long term (current) use of insulin; Z79.899 Other long term (current) drug therapy; Z86.16 Personal history of COVID-19; Z68.39 Body mass index [BMI] 39.0-39.9, adult
CPT/HCPCS: 87081; 87430; 99283; A9270

== ENCOUNTER 2025-01-16 22:51 | Emergency (ER) | payer BC ==
[2025-01-16] MEDS ORDERED: Pseudoephedrine 30 MG Tab PO ONE (22:52)
[2025-01-16 23:13] VITALS: BP 148/59; PULSE 82
[2025-01-16] MEDS: Pseudoephedrine 30 MG Tab PO ONE (23:16)
[2025-01-16] MEDS ORDERED: Pseudoephedrine 30 MG Tab ONE (23:25)
== END 2025-01-16 23:34 | disposition home or self-care (01) ==
LOC: DL.ED 22:51
DX: H65.193 Other acute nonsuppurative otitis media, bilateral (principal); H91.93 Unspecified hearing loss, bilateral; I10 Essential (primary) hypertension; E11.40 Type 2 diabetes mellitus with diabetic neuropathy, unspecified; E66.9 Obesity, unspecified; Z86.16 Personal history of COVID-19; Z79.899 Other long term (current) drug therapy; Z79.51 Long term (current) use of inhaled steroids; Z88.0 Allergy status to penicillin; Z88.8 Allergy status to other drugs, medicaments and biological substances; Z88.2 Allergy status to sulfonamides; Z88.6 Allergy status to analgesic agent; Z68.37 Body mass index [BMI] 37.0-37.9, adult
CPT/HCPCS: 99282; 99283; A9270

== ENCOUNTER 2025-07-15 20:29 | Emergency (ER) | payer BC, MEDICARE ==
[2025-07-16 01:14] VITALS: BP 141/72; PULSE 69
== END 2025-07-16 01:12 | disposition home or self-care (01) ==
LOC: DL.ED 20:29
DX: T38.3X1A Poisoning by insulin and oral hypoglycemic [antidiabetic] drugs, accidental (unintentional), initial encounter (principal); E78.00 Pure hypercholesterolemia, unspecified; I10 Essential (primary) hypertension; E11.9 Type 2 diabetes mellitus without complications; Z88.2 Allergy status to sulfonamides; Z88.6 Allergy status to analgesic agent; Z88.8 Allergy status to other drugs, medicaments and biological substances; Z79.899 Other long term (current) drug therapy; Z79.4 Long term (current) use of insulin
CPT/HCPCS: 82947; 99284

== ENCOUNTER 2025-08-14 20:02 | Emergency (ER) | payer MEDICARE, BC ==
[2025-08-14] MEDS: Take Home: Clindamycin HCl 150 MG, 12 Cap Pack PO ONE (20:34)
[2025-08-14 21:15] VITALS: BP 131/53; PULSE 72
== END 2025-08-14 21:15 | disposition home or self-care (01) ==
LOC: DL.ED 20:02
DX: K04.7 Periapical abscess without sinus (principal); K02.9 Dental caries, unspecified; B35.0 Tinea barbae and tinea capitis; I10 Essential (primary) hypertension; E78.00 Pure hypercholesterolemia, unspecified; J45.909 Unspecified asthma, uncomplicated; E11.9 Type 2 diabetes mellitus without complications; Z88.6 Allergy status to analgesic agent; Z88.2 Allergy status to sulfonamides; Z88.8 Allergy status to other drugs, medicaments and biological substances; Z79.4 Long term (current) use of insulin; Z79.899 Other long term (current) drug therapy
CPT/HCPCS: 99283; A9270